=== PATIENT | female | born 1985 | race Caucasian/White ===

== ENCOUNTER 2018-03-15 09:53 | Inpatient (IN) | payer MEDICAID, OTHER ==
[2018-03-15] MEDS ORDERED: Sodium Chloride 0.9% 1,000 ML IV ONE (10:00)
[2018-03-15] MEDS ORDERED: Sodium Chloride 0.9% 2.5 ML Syringe FLUSH PRN (10:00)
[2018-03-15] MEDS ORDERED: Sodium Chloride 0.9% 10 ML Syringe FLUSH PRN (10:00)
[2018-03-15] MEDS ORDERED: Ondansetron 4 MG/2 ML SDV IVPUSH ONE (10:00)
[2018-03-15] MEDS ORDERED: Morphine 2 MG/ML Syringe IVPUSH ONE (10:00)
[2018-03-15] MEDS ORDERED: HYDROmorphone 1 MG/ML Syringe IVPUSH ONE ×4 (10:44→13:40)
[2018-03-15] MEDS ORDERED: HYDROmorphone 1 MG/ML Syringe IM ONE (10:46)
[2018-03-15 11:01] LABS: CHLORIDE,CL 102 mmol/L (98-107); SODIUM,NA 138 mmol/L (136-145)
--- NOTE | 2018-03-15 11:37 | EDM.PDOC ---
ED HPI GENERAL MEDICAL PROBLEM - General Chief Complaint: Abdominal Pain Stated Complaint: ABDOMINAL PAIN Time Seen by Provider: 03/15/18 09:54 Source of Information: Reports: Patient History Limitations: Reports: No Limitations - History of Present Illness INITIAL COMMENTS - FREE TEXT/NARRATIVE: History of present illness: []Patient started having right lower quadrant abdominal pain yesterday that has progressively worsened throughout the night. She has been having fevers and vomiting and states her pain is severe and worse with movement. She has no blood in her urine or pain with urination, gel discharge or diarrhea. Review of systems: As per history of present illness and below otherwise all systems reviewed and negative. Past medical history: As per history of present illness and as reviewed below otherwise noncontributory. Surgical history: As per history of present illness and as reviewed below otherwise noncontributory. Social history: No reported history of drug or alcohol abuse. Family history: As per history of present illness and as reviewed below otherwise noncontributory. Physical exam: General: Well developed, well nourished in moderate painful distress HEENT: Atraumatic, normocephalic, pupils reactive, negative for conjunctival pallor or scleral icterus, mucous membranes moist, throat clear, neck supple, nontender, trachea midline. Lungs: Clear to auscultation, breath sounds equal bilaterally, chest nontender. Heart: S1S2, regular, negative for clicks, rubs, or JVD. Abdomen: Absent bowel sounds, Rigid, nondistended, tender throughout with rebound guarding. Negative for masses or hepatosplenomegaly. Negative for costovertebral tenderness. Pelvis: Stable nontender. Genitourinary: Deferred. Rectal: Deferred. Extremities: Atraumatic, negative for cords or calf pain. Neurovascular unremarkable. Neuro: Awake, alert, oriented. Cranial nerves II through XII unremarkable. Cerebellum unremarkable. Motor and sensory unremarkable throughout. Exam nonfocal. Skin:warm and dry Diagnostics: CBC elevated white count 17,000 with a shift, chemistry, UA, negative , CT abdomen pelvis shows acute appendicitis with microperforation Therapeutics: IV fluids, Dilaudid and Zofran for pain, Zosyn given ED Course: Unremarkable Impression: Acute appendicitis with microperforation Prescriptions: None Plan: Dr. Burton consultation will be coming in for appendectomy Definitive disposition and diagnosis as appropriate pending reevaluation and review of above. 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 ED EXAM, GI/ABD - Physical Exam Exam: See Below (See history of present illness) Course - Vital Signs Last Recorded V/S: Last Vital Signs Temp 96.7 F 03/15/18 09:56 Pulse 109 H 03/15/18 09:56 Resp 20 03/15/18 09:56 BP 115/65 03/15/18 09:56 Pulse Ox 98 03/15/18 09:56 - Orders/Labs/Meds Orders: Active Orders 24 hr Category Date Time Status NPO [Nothing Per Oral Diet] [DIET] Diet 03/15/18 Lunch Active Abdomen Pelvis w Cont [CT] Stat Exams 03/15/18 10:44 Taken UA W/MICROSCOPIC [URIN] Stat Lab 03/15/18 10:00 Ordered Lactated Ringers [Ringers, Lactated] 1,000 ml Med 03/15/18 12:17 Active IV .BOLUS Piperacillin/Tazobactam [Piperacil-Tazobact] 3.375 gm Med 03/15/18 12:16 Active Sodium Chloride 0.9% [Normal Saline] 50 ml IV ONETIME Sodium Chloride 0.9% [Saline Flush] Med 03/15/18 10:00 Active 10 ml FLUSH ASDIRECTED PRN Sodium Chloride 0.9% [Saline Flush] Med 03/15/18 10:00 Active 2.5 ml FLUSH ASDIRECTED PRN Saline Lock Insert [OM.PC] Stat Oth 03/15/18 09:59 Ordered Medication Orders Piperacillin Sod/Tazobactam (Sod 3.375 gm/ Sodium Chloride) 50 mls @ 100 mls/ hr IV ONETIME ONE Stop: 03/15/18 12:45 Lactated Ringer's (Ringers, Lactated) 1,000 mls @ 999 mls/hr IV .BOLUS ONE Stop: 03/15/18 13:17 Sodium Chloride (Saline Flush) 10 ml FLUSH ASDIRECTED PRN PRN Reason: Keep Vein Open Sodium Chloride (Saline Flush) 2.5 ml FLUSH ASDIRECTED PRN PRN Reason: Keep Vein Open Labs: Laboratory Tests 03/15/18 03/15/18 03/15/18 Range/Units 10:05 10:05 10:05 WBC 17.11 H (4.0-11.0) K/uL RBC 4.95 (4.30-5.90) M/uL Hgb 14.5 (12.0-16.0) g/dL Hct 42.0 (36.0-46.0) % MCV 84.8 (80.0-98.0) fL MCH 29.3 (27.0-32.0) pg MCHC 34.5 (31.0-37.0) g/dL RDW Std Deviation 38.9 (28.0-62.0) fl RDW Coeff of Severo 13 (11.0-15.0) % Plt Count 207 (150-400) K/uL MPV 11.20 (7.40-12.00) fL Neut % (Auto) 87.1 H (48.0-80.0) % Lymph % (Auto) 4.4 L (16.0-40.0) % [place] % (Auto) 8.4 (0.0-15.0) % Eos % (Auto) 0.0 (0.0-7.0) % Baso % (Auto) 0.1 (0.0-1.5) % Neut # (Auto) 14.9 H (1.4-5.7) K/uL Lymph # (Auto) 0.8 (0.6-2.4) K/uL [place] # (Auto) 1.4 H (0.0-0.8) K/uL Eos # (Auto) 0.0 (0.0-0.7) K/uL Baso # (Auto) 0.0 (0.0-0.1) K/uL Nucleated RBC % 0.0 /100WBC Nucleated RBCs # 0 K/uL Sodium 138 (136-145) mmol/L Potassium 3.8 (3.5-5.1) mmol/L Chloride 102 (98-107) mmol/L Carbon Dioxide 23.6 (21.0-32.0) mmol/L BUN 17 (7.0-18.0) mg/dL Creatinine 0.9 (0.6-1.0) mg/dL Est Cr Clr Drug Dosing 81.50 mL/min Estimated GFR (MDRD) > 60.0 ml/min Glucose 134 H (74-106) mg/dL Calcium 9.0 (8.5-10.1) mg/dL Total Bilirubin 1.1 H (0.2-1.0) mg/dL AST 14 L (15-37) IU/L ALT 17 (14-63) IU/L Alkaline Phosphatase 51 (46-116) U/L Total Protein 8.3 H (6.4-8.2) g/dL Albumin 4.5 (3.4-5.0) g/dL Globulin 3.8 H (2.0-3.5) g/dL Albumin/Globulin Ratio 1.2 L (1.3-2.8) Lipase 86 (73-393) U/L HCG, Quant < 1.0 mIU/mL Meds: Medications Generic Name Dose Route Start Last Admin Trade Name Freq PRN Reason Stop Dose Admin Piperacillin Sod/Tazobactam 50 mls @ 100 mls/hr 03/15/18 12:16 Sod 3.375 gm/ Sodium Chloride IV 03/15/18 12:45 ONETIME ONE Lactated Ringer's 1,000 mls @ 999 mls/hr 03/15/18 12:17 Ringers, Lactated IV 03/15/18 13:17 .BOLUS ONE Sodium Chloride 10 ml 03/15/18 10:00 Saline Flush FLUSH ASDIRECTED PRN Keep Vein Open Sodium Chloride 2.5 ml 03/15/18 10:00 Saline Flush FLUSH ASDIRECTED PRN Keep Vein Open Discontinued Medications Generic Name Dose Route Start Last Admin Trade Name Freq PRN Reason Stop Dose Admin Hydromorphone HCl 0.5 mg 03/15/18 10:44 03/15/18 10:56 Dilaudid IVPUSH 03/15/18 10:45 Not Given ONETIME ONE Hydromorphone HCl 1 mg 03/15/18 10:46 03/15/18 10:56 Dilaudid IM 03/15/18 10:47 Not Given ONETIME ONE Hydromorphone HCl 1 mg 03/15/18 10:54 03/15/18 10:55 Dilaudid IVPUSH 03/15/18 10:55 1 mg ONETIME ONE Administration Hydromorphone HCl 1 mg 03/15/18 11:27 03/15/18 11:34 Dilaudid IVPUSH 03/15/18 11:28 1 mg ONETIME ONE Administration Sodium Chloride 1,000 mls @ 999 mls/hr 03/15/18 10:00 03/15/18 10:17 Normal Saline IV 03/15/18 11:00 999 mls/hr .Bolus ONE Administration Morphine Sulfate 4 mg 03/15/18 10:00 03/15/18 10:17 Morphine IVPUSH 03/15/18 10:01 4 mg ONETIME ONE Administration Ondansetron HCl 4 mg 03/15/18 10:00 03/15/18 10:17 Zofran IVPUSH 03/15/18 10:01 4 mg ONETIME ONE Administration Departure - Departure Time of Disposition: 12:24 Disposition: Admitted As Inpatient 68 Condition: Good Clinical Impression: Acute appendicitis with rupture - Discharge Information *PRESCRIPTION DRUG MONITORING PROGRAM REVIEWED*: No *COPY OF PRESCRIPTION DRUG MONITORING REPORT IN PATIENT MODE: No Referrals: PCP,Unknown [Primary Care Provider] - Forms: ED Department Discharge - My Orders Last 24 Hours: My Active Orders 03/15/18 09:59 Saline Lock Insert [OM.PC] Stat 03/15/18 10:00 UA W/MICROSCOPIC [URIN] Stat Sodium Chloride 0.9% [Saline Flush] 10 ml FLUSH ASDIRECTED PRN Sodium Chloride 0.9% [Saline Flush] 2.5 ml FLUSH ASDIRECTED PRN 03/15/18 10:44 Abdomen Pelvis w Cont [CT] Stat 03/15/18 12:16 Piperacillin/Tazobactam [Piperacil-Tazobact] 3.375 gm Sodium Chloride 0.9% [ Normal Saline] 50 ml IV ONETIME 03/15/18 12:17 Lactated Ringers [Ringers, Lactated] 1,000 ml IV .BOLUS 03/15/18 Lunch NPO [Nothing Per Oral Diet] [DIET] - Assessment/Plan Last 24 Hours: My Active Orders 03/15/18 09:59 Saline Lock Insert [OM.PC] Stat 03/15/18 10:00 UA W/MICROSCOPIC [URIN] Stat Sodium Chloride 0.9% [Saline Flush] 10 ml FLUSH ASDIRECTED PRN Sodium Chloride 0.9% [Saline Flush] 2.5 ml FLUSH ASDIRECTED PRN 03/15/18 10:44 Abdomen Pelvis w Cont [CT] Stat 03/15/18 12:16 Piperacillin/Tazobactam [Piperacil-Tazobact] 3.375 gm Sodium Chloride 0.9% [ Normal Saline] 50 ml IV ONETIME 03/15/18 12:17 Lactated Ringers [Ringers, Lactated] 1,000 ml IV .BOLUS 03/15/18 Lunch NPO [Nothing Per Oral Diet] [DIET]
[2018-03-15] MEDS ORDERED: Piperacillin/Tazobactam 3.375 GM in Sodium Chloride 0.9% 50 ML IV ONE (12:16)
[2018-03-15] MEDS ORDERED: Lactated Ringers 1,000 ML IV ONE (12:17)
--- NOTE | 2018-03-15 13:07 | PCM.HP ---
H&P History of Present Illness - General Date of Service: 03/15/18 Source of Information: Patient History Limitations: Reports: No Limitations - History of Present Illness Initial Comments - Free Text/Narative: Patient is a 33 year old female who presents with 24 hours of abdominal pain. She has never had pain like this before. It was located in the RLQ. This progressively got worse with time. This morning she is unable to bend down or take a deep breath. She c/o fever chills nausea and vomiting. She was tachycardic on arrival. She had a WBC of 17K. CT scan of the abdomen pelvis showed an inflamed retrocecal appendix that appeared to be perforated. 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 Exam - Exam Exam: See Below - Vital Signs Vital Signs: Last Vital Signs Temp 35.9 C 03/15/18 09:56 Pulse 109 H 03/15/18 09:56 Resp 20 03/15/18 09:56 BP 115/65 03/15/18 09:56 Pulse Ox 98 03/15/18 09:56 Weight: 60.781 kg - Exam General: Alert, Oriented, Moderate Distress HEENT: Conjunctiva Clear, Mucosa Moist & [place], Posterior Pharynx Clear Lungs: Clear to Auscultation, Normal Respiratory Effort Cardiovascular: Regular Rhythm, Tachycardia GI/Abdominal Exam: Soft, No Distention, No Mass, Rigid (RLQ), Rebound (RLQ), Tender (RLQ) Back Exam: Normal Inspection Extremities: Normal Inspection Skin: Warm, Dry, Intact Psychiatric: Alert, Normal Affect, Normal Mood - Patient Data Lab Results Last 24 hrs: Laboratory Results - last 24 hr 03/15/18 03/15/18 03/15/18 Range/Units 10:05 10:05 10:05 WBC 17.11 H (4.0-11.0) K/uL RBC 4.95 (4.30-5.90) M/uL Hgb 14.5 (12.0-16.0) g/dL Hct 42.0 (36.0-46.0) % MCV 84.8 (80.0-98.0) fL MCH 29.3 (27.0-32.0) pg MCHC 34.5 (31.0-37.0) g/dL RDW Std Deviation 38.9 (28.0-62.0) fl RDW Coeff of Severo 13 (11.0-15.0) % Plt Count 207 (150-400) K/uL MPV 11.20 (7.40-12.00) fL Neut % (Auto) 87.1 H (48.0-80.0) % Lymph % (Auto) 4.4 L (16.0-40.0) % [place] % (Auto) 8.4 (0.0-15.0) % Eos % (Auto) 0.0 (0.0-7.0) % Baso % (Auto) 0.1 (0.0-1.5) % Neut # (Auto) 14.9 H (1.4-5.7) K/uL Lymph # (Auto) 0.8 (0.6-2.4) K/uL [place] # (Auto) 1.4 H (0.0-0.8) K/uL Eos # (Auto) 0.0 (0.0-0.7) K/uL Baso # (Auto) 0.0 (0.0-0.1) K/uL Nucleated RBC % 0.0 /100WBC Nucleated RBCs # 0 K/uL Lactate (0.20-2.00) mmol/L Sodium 138 (136-145) mmol/L Potassium 3.8 (3.5-5.1) mmol/L Chloride 102 (98-107) mmol/L Carbon Dioxide 23.6 (21.0-32.0) mmol/L BUN 17 (7.0-18.0) mg/dL Creatinine 0.9 (0.6-1.0) mg/dL Est Cr Clr Drug Dosing 81.50 mL/min Estimated GFR (MDRD) > 60.0 ml/min Glucose 134 H (74-106) mg/dL Calcium 9.0 (8.5-10.1) mg/dL Total Bilirubin 1.1 H (0.2-1.0) mg/dL AST 14 L (15-37) IU/L ALT 17 (14-63) IU/L Alkaline Phosphatase 51 (46-116) U/L Total Protein 8.3 H (6.4-8.2) g/dL Albumin 4.5 (3.4-5.0) g/dL Globulin 3.8 H (2.0-3.5) g/dL Albumin/Globulin Ratio 1.2 L (1.3-2.8) Lipase 86 (73-393) U/L HCG, Quant < 1.0 mIU/mL 03/15/18 Range/Units 10:05 WBC (4.0-11.0) K/uL RBC (4.30-5.90) M/uL Hgb (12.0-16.0) g/dL Hct (36.0-46.0) % MCV (80.0-98.0) fL MCH (27.0-32.0) pg MCHC (31.0-37.0) g/dL RDW Std Deviation (28.0-62.0) fl RDW Coeff of Severo (11.0-15.0) % Plt Count (150-400) K/uL MPV (7.40-12.00) fL Neut % (Auto) (48.0-80.0) % Lymph % (Auto) (16.0-40.0) % [place] % (Auto) (0.0-15.0) % Eos % (Auto) (0.0-7.0) % Baso % (Auto) (0.0-1.5) % Neut # (Auto) (1.4-5.7) K/uL Lymph # (Auto) (0.6-2.4) K/uL [place] # (Auto) (0.0-0.8) K/uL Eos # (Auto) (0.0-0.7) K/uL Baso # (Auto) (0.0-0.1) K/uL Nucleated RBC % /100WBC Nucleated RBCs # K/uL Lactate 1.5 (0.20-2.00) mmol/L Sodium (136-145) mmol/L Potassium (3.5-5.1) mmol/L Chloride (98-107) mmol/L Carbon Dioxide (21.0-32.0) mmol/L BUN (7.0-18.0) mg/dL Creatinine (0.6-1.0) mg/dL Est Cr Clr Drug Dosing mL/min Estimated GFR (MDRD) ml/min Glucose (74-106) mg/dL Calcium (8.5-10.1) mg/dL Total Bilirubin (0.2-1.0) mg/dL AST (15-37) IU/L ALT (14-63) IU/L Alkaline Phosphatase (46-116) U/L Total Protein (6.4-8.2) g/dL Albumin (3.4-5.0) g/dL Globulin (2.0-3.5) g/dL Albumin/Globulin Ratio (1.3-2.8) Lipase (73-393) U/L HCG, Quant mIU/mL Result Diagrams: 03/15/18 10:05 03/15/18 10:05 - Problem List (1) Acute appendicitis with rupture SNOMED Code(s): 91375090, 61223236 ICD Code: K35.2 - ACUTE APPENDICITIS WITH GENERALIZED PERITONITIS Status: Acute Current Visit: Yes Problem List Initiated/Reviewed/Updated: Yes Orders Last 24hrs: Active Orders 24 hr Category Date Time Status NPO [Nothing Per Oral Diet] [DIET] Diet 03/15/18 Lunch Active Abdomen Pelvis w Cont [CT] Stat Exams 03/15/18 10:44 Taken UA W/MICROSCOPIC [URIN] Stat Lab 03/15/18 10:00 Ordered Lactated Ringers [Ringers, Lactated] 1,000 ml Med 03/15/18 12:17 Active IV .BOLUS Sodium Chloride 0.9% [Saline Flush] Med 03/15/18 10:00 Active 10 ml FLUSH ASDIRECTED PRN Sodium Chloride 0.9% [Saline Flush] Med 03/15/18 10:00 Active 2.5 ml FLUSH ASDIRECTED PRN Saline Lock Insert [OM.PC] Stat Oth 03/15/18 09:59 Ordered Medication Orders Lactated Ringer's (Ringers, Lactated) 1,000 mls @ 999 mls/hr IV .BOLUS ONE Stop: 03/15/18 13:17 Last Admin: 03/15/18 12:39 Dose: 999 mls/hr Sodium Chloride (Saline Flush) 10 ml FLUSH ASDIRECTED PRN PRN Reason: Keep Vein Open Sodium Chloride (Saline Flush) 2.5 ml FLUSH ASDIRECTED PRN PRN Reason: Keep Vein Open Assessment/Plan Comment:: Patient has acute appendicitis. I explained the pathophysiology of appendicitis to the patient. The treatment for this is removal of the appendix. We discussed the laparoscopic and open approaches. Should I be unable to perform it safely I will convert to open. We discussed the expected perioperative course for perforated vs non-perforated appendicitis. We discussed the risks including bleeding, infection or damage to surrounding structures. She verbalized understanding and wishes to proceed. She has been given 1 L of fluids and zosyn. Will keep npo and take to the OR.
[2018-03-15] MEDS ORDERED: Bupivacaine 0.5% 30 ML SDV ONE (13:20)
[2018-03-15] MEDS ORDERED: fentaNYL 250 MCG/5 ML SDV ONE (13:47)
[2018-03-15] MEDS ORDERED: Propofol 200 MG/20 ML SDV ONE (13:47)
[2018-03-15] MEDS ORDERED: Midazolam 1 MG/ML 2 ML SDV ONE (13:47)
[2018-03-15] MEDS ORDERED: Sugammadex Sodium 200 MG/2 ML VIAL ONE (13:53)
[2018-03-15] MEDS ORDERED: Succinylcholine 200 MG/10 ML MDV ONE (13:56)
[2018-03-15] MEDS ORDERED: Rocuronium 10 MG/ML 10 ML Syringe ONE (13:56)
[2018-03-15] MEDS ORDERED: Ondansetron 4 MG/2 ML SDV ONE (13:56)
[2018-03-15] MEDS ORDERED: Ketorolac 30 MG/ML SDV ONE (13:56)
[2018-03-15] MEDS ORDERED: Glycopyrrolate 0.2 MG/ML SDV ONE (13:56)
[2018-03-15] MEDS ORDERED: Lidocaine 2% 5 ML SDV ONE (13:56)
[2018-03-15] MEDS ORDERED: fentaNYL 100 MCG/2 ML SDV IVPUSH PRN (13:59)
--- NOTE | 2018-03-15 13:59 | PCM.PREANE ---
Preanesthetic Assessment - Anesthesia/Transfusion/Family Hx Family History of Anesthesia Reaction: No - Review of Systems General: No Symptoms Pulmonary: No Symptoms Cardiovascular: No Symptoms Gastrointestinal: No Symptoms Neurological: No Symptoms - Physical Assessment NPO Status Date: 03/15/18 NPO Status Time: 00:01 O2 Sat by Pulse Oximetry: 98 Respiratory Rate: 20 Vital Signs: Last Vital Signs Temp 35.9 C 03/15/18 09:56 Pulse 109 H 03/15/18 09:56 Resp 20 03/15/18 09:56 BP 115/65 03/15/18 09:56 Pulse Ox 98 03/15/18 09:56 Height: 1.65 m Weight: 60.781 kg ASA Class: 1E Mental Status: Alert & Oriented x3 Dentition: Reports: Normal Dentition ROM/Head Extension: Full - Lab Values: Laboratory Last Values WBC 17.11 K/uL (4.0-11.0) H 03/15/18 10:05 RBC 4.95 M/uL (4.30-5.90) 03/15/18 10:05 Hgb 14.5 g/dL (12.0-16.0) 03/15/18 10:05 Hct 42.0 % (36.0-46.0) 03/15/18 10:05 MCV 84.8 fL (80.0-98.0) 03/15/18 10:05 MCH 29.3 pg (27.0-32.0) 03/15/18 10:05 MCHC 34.5 g/dL (31.0-37.0) 03/15/18 10:05 RDW Std Deviation 38.9 fl (28.0-62.0) 03/15/18 10:05 RDW Coeff of Severo 13 % (11.0-15.0) 03/15/18 10:05 Plt Count 207 K/uL (150-400) 03/15/18 10:05 MPV 11.20 fL (7.40-12.00) 03/15/18 10:05 Neut % (Auto) 87.1 % (48.0-80.0) H 03/15/18 10:05 Lymph % (Auto) 4.4 % (16.0-40.0) L 03/15/18 10:05 [place] % (Auto) 8.4 % (0.0-15.0) 03/15/18 10:05 Eos % (Auto) 0.0 % (0.0-7.0) 03/15/18 10:05 Baso % (Auto) 0.1 % (0.0-1.5) 03/15/18 10:05 Neut # (Auto) 14.9 K/uL (1.4-5.7) H 03/15/18 10:05 Lymph # (Auto) 0.8 K/uL (0.6-2.4) 03/15/18 10:05 [place] # (Auto) 1.4 K/uL (0.0-0.8) H 03/15/18 10:05 Eos # (Auto) 0.0 K/uL (0.0-0.7) 03/15/18 10:05 Baso # (Auto) 0.0 K/uL (0.0-0.1) 03/15/18 10:05 Nucleated RBC % 0.0 /100WBC 03/15/18 10:05 Nucleated RBCs # 0 K/uL 03/15/18 10:05 Lactate 1.5 mmol/L (0.20-2.00) 03/15/18 10:05 Sodium 138 mmol/L (136-145) 03/15/18 10:05 Potassium 3.8 mmol/L (3.5-5.1) 03/15/18 10:05 Chloride 102 mmol/L (98-107) 03/15/18 10:05 Carbon Dioxide 23.6 mmol/L (21.0-32.0) 03/15/18 10:05 BUN 17 mg/dL (7.0-18.0) 03/15/18 10:05 Creatinine 0.9 mg/dL (0.6-1.0) 03/15/18 10:05 Est Cr Clr Drug Dosing 81.50 mL/min 03/15/18 10:05 Estimated GFR (MDRD) > 60.0 ml/min 03/15/18 10:05 Glucose 134 mg/dL (74-106) H 03/15/18 10:05 Calcium 9.0 mg/dL (8.5-10.1) 03/15/18 10:05 Total Bilirubin 1.1 mg/dL (0.2-1.0) H 03/15/18 10:05 AST 14 IU/L (15-37) L 03/15/18 10:05 ALT 17 IU/L (14-63) 03/15/18 10:05 Alkaline Phosphatase 51 U/L (46-116) 03/15/18 10:05 Total Protein 8.3 g/dL (6.4-8.2) H 03/15/18 10:05 Albumin 4.5 g/dL (3.4-5.0) 03/15/18 10:05 Globulin 3.8 g/dL (2.0-3.5) H 03/15/18 10:05 Albumin/Globulin Ratio 1.2 (1.3-2.8) L 03/15/18 10:05 Lipase 86 U/L (73-393) 03/15/18 10:05 HCG, Quant < 1.0 mIU/mL 03/15/18 10:05 - Allergies Allergies/Adverse Reactions: Allergies Allergy/AdvReac Type Severity Reaction Status Date / Time No Known Allergies Allergy Verified 03/15/18 10:04 - Acknowledgements Anesthesia Type Planned: General Anesthesia Pt an Appropriate Candidate for the Planned Anesthesia: Yes Alternatives and Risks of Anesthesia Discussed w Pt/Guardian: Yes Pt/Guardian Understands and Agrees with Anesthesia Plan: Yes PreAnesthesia Questionnaire - Past Health History Medical/Surgical History: Denies 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: Psychiatric History: Reports: Anxiety, Depression - SUBSTANCE USE Smoking Status *Q: Never Smoker Recreational Drug Use History: Yes Recreational Drug Type: Reports: Marijuana/Hashish - HOME MEDS Home Medications: Home Meds ClonazePAM [KlonoPIN] 0.5 mg PO PRN 03/15/18 [History] - CURRENT (IN HOUSE) MEDS Current Meds: Current Medications Hydromorphone HCl (Dilaudid) 0.5 mg IVPUSH Q1H PRN PRN Reason: Abdominal Pain Sodium Chloride (Saline Flush) 10 ml FLUSH ASDIRECTED PRN PRN Reason: Keep Vein Open Sodium Chloride (Saline Flush) 2.5 ml FLUSH ASDIRECTED PRN PRN Reason: Keep Vein Open Discontinued Medications Bupivacaine HCl (Marcaine 0.5%) Confirm Administered Dose 30 ml .ROUTE .STK-MED ONE Stop: 03/15/18 13:21 Fentanyl (Sublimaze) Confirm Administered Dose 250 mcg .ROUTE .STK-MED ONE Stop: 03/15/18 13:48 Hydromorphone HCl (Dilaudid) 0.5 mg IVPUSH ONETIME ONE Stop: 03/15/18 10:45 Last Admin: 03/15/18 10:56 Dose: Not Given Hydromorphone HCl (Dilaudid) 1 mg IM ONETIME ONE Stop: 03/15/18 10:47 Last Admin: 03/15/18 10:56 Dose: Not Given Hydromorphone HCl (Dilaudid) 1 mg IVPUSH ONETIME ONE Stop: 03/15/18 10:55 Last Admin: 03/15/18 10:55 Dose: 1 mg Hydromorphone HCl (Dilaudid) 1 mg IVPUSH ONETIME ONE Stop: 03/15/18 11:28 Last Admin: 03/15/18 11:34 Dose: 1 mg Hydromorphone HCl (Dilaudid) 1 mg IVPUSH ONETIME ONE Stop: 03/15/18 13:41 Last Admin: 03/15/18 13:44 Dose: 1 mg Sodium Chloride (Normal Saline) 1,000 mls @ 999 mls/hr IV .Bolus ONE Stop: 03/15/18 11:00 Last Admin: 03/15/18 10:17 Dose: 999 mls/hr Piperacillin Sod/Tazobactam (Sod 3.375 gm/ Sodium Chloride) 50 mls @ 100 mls/ hr IV ONETIME ONE Stop: 03/15/18 12:45 Last Admin: 03/15/18 12:40 Dose: 100 mls/hr Lactated Ringer's (Ringers, Lactated) 1,000 mls @ 999 mls/hr IV .BOLUS ONE Stop: 03/15/18 13:17 Last Admin: 03/15/18 12:39 Dose: 999 mls/hr Midazolam HCl (Versed 1 Mg/Ml) Confirm Administered Dose 2 mg .ROUTE .STK-MED ONE Stop: 03/15/18 13:48 Morphine Sulfate (Morphine) 4 mg IVPUSH ONETIME ONE Stop: 03/15/18 10:01 Last Admin: 03/15/18 10:17 Dose: 4 mg Ondansetron HCl (Zofran) 4 mg IVPUSH ONETIME ONE Stop: 03/15/18 10:01 Last Admin: 03/15/18 10:17 Dose: 4 mg Propofol (Diprivan 20 Ml) Confirm Administered Dose 200 mg .ROUTE .STK-MED ONE Stop: 03/15/18 13:48 Sugammadex Sodium ([place]) Confirm Administered Dose 200 mg .ROUTE .STK-MED ONE Stop: 03/15/18 13:54
[2018-03-15] MEDS ORDERED: Phenylephrine/Normal Saline 100 MCG/ML 10 ML Syringe ONE (14:22)
--- NOTE | 2018-03-15 15:29 | PCM.OPNOTE ---
- General Post-Op/Procedure Note Date of Surgery/Procedure: 03/15/18 Operative Procedure(s): Laparoscopic appendectomy Findings: Perforated and necrotic appendix with purulent peritonitis Pre Op Diagnosis: Acute appendicitis Post-Op Diagnosis: Acute appendicitis Anesthesia Technique: General ET Tube Primary Surgeon: Pilar Kumar Fluid Replacement, Intraop: 800 Output, Urine Amount: 250 EBL in mLs: 10 Complications: None Condition: Good
[2018-03-15] MEDS ORDERED: Meperidine PF 25 MG/ML Syringe IVPUSH ONE (15:52)
[2018-03-15] MEDS ORDERED: Iopamidol 755 MG/ML 200 ML Multipack Bottle IVPUSH STA (15:59)
--- NOTE | 2018-03-15 16:01 | PCM.POSTAN ---
POST ANESTHESIA ASSESSMENT - MENTAL STATUS Mental Status: Alert - RESPIRATORY Respiratory Status: Respiratory Rate WNL - CARDIOVASCULAR CV Status: Pulse Rate WNL - GASTROINTESTINAL GI Status: No Symptoms - POST OP HYDRATION Hydration Status: Adequate & Stable
--- NOTE | 2018-03-15 16:20 | PCM48HPAN ---
Post Anesthesia Note - EVALUATION WITHIN 48HRS OF ANESTHETIC Vital Signs in Normal Range: Yes Patient Participated in Evaluation: Yes Respiratory Function Stable: Yes Airway Patent: Yes Cardiovascular Function Stable: Yes Hydration Status Stable: Yes Pain Control Satisfactory: Yes Nausea and Vomiting Control Satisfactory: Yes Mental Status Recovered: Yes Resp Rate: 11
[2018-03-15] MEDS: Lactated Ringers 1,000 ML IV SCH ×2 (16:35→23:33)
--- NOTE | 2018-03-15 16:37 | OR ---
SURGEON: PEDRO OWEN MD DATE OF PROCEDURE: 03/15/2018 PREOPERATIVE DIAGNOSIS: Appendicitis. POSTOPERATIVE DIAGNOSIS: Acute appendicitis, perforated. PROCEDURE PERFORMED: Laparoscopic appendectomy. MANAGER OF BUSINESS OPERATIONS: Dr. Sai Tellez. ANESTHESIA: General endotracheal anesthesia. FLUIDS: 800 mL of crystalloid. URINE OUTPUT: 250 mL. ESTIMATED BLOOD LOSS: 10 mL. FINDINGS: Perforated necrotic appendicitis with purulent peritonitis. COMPLICATIONS: None. INDICATIONS: The patient is a 33-year-old female, who presents with 24 hours of abdominal pain. CBC showed a leukocytosis of 17,[address] abdomen and pelvis showed a retrocecal perforated appendix. The patient and I discussed the need for an appendectomy. I explained both the laparoscopic and open approaches. Should I be unable to perform it safely laparoscopically, I will convert to open. I explained the procedure, expected perioperative course, and risks including bleeding, infection, or damage to surrounding structures. The patient verbalized understanding and wishes to proceed. PROCEDURE IN DETAIL: The patient was brought to the operating room and placed on the OR table in supine position. A time-out was completed verifying the patient's name, age, date of , allergies, and procedure to be performed. General endotracheal anesthesia was induced. The left arm was tucked to the patient's side and a Sibley catheter was placed. The abdomen was prepped and draped in usual standard fashion. I anesthetized an area 2 fingerbreadths below the left subcostal margin in the midclavicular line with 0.5% Marcaine plain. An 11 blade was used to make a 1 cm incision in this area. A 5 mm optical trocar was used to gain entry into the abdomen in the left upper quadrant. All layers of the abdominal wall were visualized upon entry. The abdomen was insufflated. I inspected the area underneath my initial trocar placement. No damage to surrounding structures was noted. A 5 mm trocar was placed under direct visualization just left and lateral to the umbilicus. I then placed a 12 mm port under direct visualization in the left lower quadrant. The patient was placed into Trendelenburg position and airplaned slightly to the left. I turned my attention to the right side of the abdomen. The patient had a large amount of yellowish green fluid in the pelvis along the right pericolic gutter and up above the liver. This was suctioned out. The peritoneum was hyperemic. I identified the ascending colon and followed this down to the cecum. The area behind the cecum was inflamed. The cecum was not well attached to the posterior peritoneum and I was easily able to rotate this medially. I identified a thickened area of tissue consistent with an inflamed and ruptured appendix. I identified the appendiceal base and followed this distally. The appendix itself was necrotic and perforated. I attempted to elevate the distal tip and this tore off the body of the appendix. It was removed from the abdomen and placed in the container. I turned my attention back to the right lower quadrant. The base of the appendix did not seem to be involved. A [place] dissector was used to create a window between the base of the appendix and the appendiceal mesentery. An endoscopic stapling device was used to staple and transect across the base of the appendix using a 45 mm blue load. Using a Harmonic, I then took down the appendiceal mesentery as close to the body of the appendix as I could. I went in a proximal to distal fashion. Great care was taken to ensure that I was achieving hemostasis and avoiding involvement of other structures, given the amount of inflammation. Once the appendix was completely freed from the appendiceal mesentery, it was placed in an EndoCatch bag and removed through the 12 mm port site. It was placed with the other piece of the appendix and sent to pathology, labeled as appendix. I placed a 12 mm port back into the abdomen, and inspected my operative field. It appeared to be hemostatic and the staple line appeared to be intact. I then copiously irrigated the abdomen with 2.5 L of normal saline until it ran clear. The 12 mm port site was closed with a Leonard-Era device and an 0 Vicryl suture. The 5 mm trocars were removed under direct visualization and the abdomen allowed to desufflate. Given the contaminated nature of the case, the skin was then closed with laila. Sterile dressings were applied. The patient was transferred to the PACU in stable condition. LIVIER MOSQUEDA /[id number]
[2018-03-15] MEDS: Ondansetron 4 MG/2 ML SDV IVPUSH PRN ×2 (16:57→23:33)
[2018-03-15] MEDS: Promethazine 25 MG/ML SDV IM PRN (19:06)
[2018-03-15] MEDS: HYDROmorphone 2 MG/ML SDV IVPUSH PRN ×2 (19:07→23:25)
[2018-03-15] MEDS: Piperacillin/Tazobactam 3.375 GM in Sodium Chloride 0.9% 50 ML IV SCH (19:54)
[2018-03-16] MEDS: Piperacillin/Tazobactam 3.375 GM in Sodium Chloride 0.9% 50 ML IV SCH ×4 (01:45→20:03)
[2018-03-16] MEDS: HYDROmorphone 2 MG/ML SDV IVPUSH PRN ×2 (04:12→07:55)
[2018-03-16 06:27] LABS: CHLORIDE,CL 105 mmol/L (98-107); SODIUM,NA 136 mmol/L (136-145)
[2018-03-16] MEDS: Lactated Ringers 1,000 ML IV SCH ×2 (06:54→14:15)
[2018-03-16] MEDS: Ondansetron 4 MG/2 ML SDV IVPUSH PRN (07:55)
[2018-03-16] MEDS ORDERED: HYDROmorphone 1 MG/ML Syringe IVPUSH PRN (08:30)
--- NOTE | 2018-03-16 10:01 | PCM.SURGPN ---
- General Info Date of Service: 03/16/18 Date of Surgery/Procedure: 03/15/18 POD#: 1 Functional Status: Reports: Pain Controlled, Other (Having some on and off nausea. This is well controlled with zofran. Abdominal pain is improved but still sore in RLQ. Pain controlled on po meds. Heart rate improved. No acute events overnight. ) - Review of Systems General: Reports: No Symptoms Pulmonary: Reports: No Symptoms Cardiovascular: Reports: No Symptoms Gastrointestinal: Reports: Abdominal Pain Musculoskeletal: Reports: No Symptoms Skin: Reports: No Symptoms - Patient Data Vitals - Most Recent: Last Vital Signs Temp 36.8 C 03/16/18 08:00 Pulse 136 H 03/15/18 16:13 Resp 12 03/16/18 08:00 BP 87/57 L 03/16/18 08:00 Pulse Ox 100 03/16/18 08:00 Weight - Most Recent: 62.5 kg I&O - Last 24 Hours: Intake & Output 03/15/18 03/16/18 03/16/18 22:59 06:59 14:59 Intake Total 1900 2148 320 Output Total 250 300 Balance 1650 1848 320 Lab Results Last 24 Hrs: Laboratory Results - last 24 hr 03/15/18 03/15/18 03/15/18 Range/Units 10:05 10:05 10:05 WBC 17.11 H (4.0-11.0) K/uL RBC 4.95 (4.30-5.90) M/uL Hgb 14.5 (12.0-16.0) g/dL Hct 42.0 (36.0-46.0) % MCV 84.8 (80.0-98.0) fL MCH 29.3 (27.0-32.0) pg MCHC 34.5 (31.0-37.0) g/dL RDW Std Deviation 38.9 (28.0-62.0) fl RDW Coeff of Severo 13 (11.0-15.0) % Plt Count 207 (150-400) K/uL MPV 11.20 (7.40-12.00) fL Neut % (Auto) 87.1 H (48.0-80.0) % Lymph % (Auto) 4.4 L (16.0-40.0) % Toombs % (Auto) 8.4 (0.0-15.0) % Eos % (Auto) 0.0 (0.0-7.0) % Baso % (Auto) 0.1 (0.0-1.5) % Neut # (Auto) 14.9 H (1.4-5.7) K/uL Lymph # (Auto) 0.8 (0.6-2.4) K/uL Toombs # (Auto) 1.4 H (0.0-0.8) K/uL Eos # (Auto) 0.0 (0.0-0.7) K/uL Baso # (Auto) 0.0 (0.0-0.1) K/uL Nucleated RBC % 0.0 /100WBC Nucleated RBCs # 0 K/uL Lactate (0.20-2.00) mmol/L Sodium 138 (136-145) mmol/L Potassium 3.8 (3.5-5.1) mmol/L Chloride 102 (98-107) mmol/L Carbon Dioxide 23.6 (21.0-32.0) mmol/L BUN 17 (7.0-18.0) mg/dL Creatinine 0.9 (0.6-1.0) mg/dL Est Cr Clr Drug Dosing 81.50 mL/min Estimated GFR (MDRD) > 60.0 ml/min Glucose 134 H (74-106) mg/dL Calcium 9.0 (8.5-10.1) mg/dL Total Bilirubin 1.1 H (0.2-1.0) mg/dL AST 14 L (15-37) IU/L ALT 17 (14-63) IU/L Alkaline Phosphatase 51 (46-116) U/L Total Protein 8.3 H (6.4-8.2) g/dL Albumin 4.5 (3.4-5.0) g/dL Globulin 3.8 H (2.0-3.5) g/dL Albumin/Globulin Ratio 1.2 L (1.3-2.8) Lipase 86 (73-393) U/L HCG, Quant < 1.0 mIU/mL 03/15/18 03/16/18 03/16/18 Range/Units 10:05 05:28 05:28 WBC 9.14 (4.0-11.0) K/uL RBC 3.82 L (4.30-5.90) M/uL Hgb 11.0 L (12.0-16.0) g/dL Hct 32.8 L (36.0-46.0) % MCV 85.9 (80.0-98.0) fL MCH 28.8 (27.0-32.0) pg MCHC 33.5 (31.0-37.0) g/dL RDW Std Deviation 41.2 (28.0-62.0) fl RDW Coeff of Severo 13 (11.0-15.0) % Plt Count 140 L (150-400) K/uL MPV 11.20 (7.40-12.00) fL Neut % (Auto) 77.1 (48.0-80.0) % Lymph % (Auto) 13.7 L (16.0-40.0) % Toombs % (Auto) 9.0 (0.0-15.0) % Eos % (Auto) 0.1 (0.0-7.0) % Baso % (Auto) 0.1 (0.0-1.5) % Neut # (Auto) 7.1 H (1.4-5.7) K/uL Lymph # (Auto) 1.3 (0.6-2.4) K/uL Toombs # (Auto) 0.8 (0.0-0.8) K/uL Eos # (Auto) 0.0 (0.0-0.7) K/uL Baso # (Auto) 0.0 (0.0-0.1) K/uL Nucleated RBC % 0.0 /100WBC Nucleated RBCs # 0 K/uL Lactate 1.5 (0.20-2.00) mmol/L Sodium 136 (136-145) mmol/L Potassium 3.7 (3.5-5.1) mmol/L Chloride 105 (98-107) mmol/L Carbon Dioxide 28.2 (21.0-32.0) mmol/L BUN 15 (7.0-18.0) mg/dL Creatinine 0.9 (0.6-1.0) mg/dL Est Cr Clr Drug Dosing 81.50 mL/min Estimated GFR (MDRD) > 60.0 ml/min Glucose 113 H (74-106) mg/dL Calcium 7.8 L (8.5-10.1) mg/dL Total Bilirubin (0.2-1.0) mg/dL AST (15-37) IU/L ALT (14-63) IU/L Alkaline Phosphatase (46-116) U/L Total Protein (6.4-8.2) g/dL Albumin (3.4-5.0) g/dL Globulin (2.0-3.5) g/dL Albumin/Globulin Ratio (1.3-2.8) Lipase (73-393) U/L HCG, Quant mIU/mL Med Orders - Current: Current Medications Acetaminophen (Tylenol) 650 mg PO Q6H PRN PRN Reason: Pain (mild 1-3) Fentanyl (Sublimaze) 50 mcg IVPUSH Q5M PRN PRN Reason: Pain Hydromorphone HCl (Dilaudid) 0.5 mg IVPUSH Q1H PRN PRN Reason: Abdominal Pain Lactated Ringer's (Ringers, Lactated) 1,000 mls @ 150 mls/hr IV ASDIRECTED [facility] Last Admin: 03/16/18 06:54 Dose: 150 mls/hr Piperacillin Sod/Tazobactam (Sod 3.375 gm/ Sodium Chloride) 50 mls @ 100 mls/ hr IV Q6H [facility] Last Admin: 03/16/18 07:58 Dose: 100 mls/hr Ondansetron HCl (Zofran) 4 mg IVPUSH Q6H PRN PRN Reason: Nausea/Vomiting Last Admin: 03/16/18 07:55 Dose: 4 mg Promethazine HCl (Phenergan) 25 mg IM Q6H PRN PRN Reason: Nausea Last Admin: 03/15/18 19:06 Dose: 25 mg Sodium Chloride (Saline Flush) 10 ml FLUSH ASDIRECTED PRN PRN Reason: Keep Vein Open Sodium Chloride (Saline Flush) 2.5 ml FLUSH ASDIRECTED PRN PRN Reason: Keep Vein Open Discontinued Medications Bupivacaine HCl (Marcaine 0.5%) Confirm Administered Dose 30 ml .ROUTE .STK-MED ONE Stop: 03/15/18 13:21 Fentanyl (Sublimaze) Confirm Administered Dose 250 mcg .ROUTE .STK-MED ONE Stop: 03/15/18 13:48 Glycopyrrolate (Robinul) Confirm Administered Dose 0.2 mg .ROUTE .STK-MED ONE Stop: 03/15/18 13:57 Hydromorphone HCl (Dilaudid) 0.5 mg IVPUSH ONETIME ONE Stop: 03/15/18 10:45 Last Admin: 03/15/18 10:56 Dose: Not Given Hydromorphone HCl (Dilaudid) 1 mg IM ONETIME ONE Stop: 03/15/18 10:47 Last Admin: 03/15/18 10:56 Dose: Not Given Hydromorphone HCl (Dilaudid) 1 mg IVPUSH ONETIME ONE Stop: 03/15/18 10:55 Last Admin: 03/15/18 10:55 Dose: 1 mg Hydromorphone HCl (Dilaudid) 1 mg IVPUSH ONETIME ONE Stop: 03/15/18 11:28 Last Admin: 03/15/18 11:34 Dose: 1 mg Hydromorphone HCl (Dilaudid) 1 mg IVPUSH ONETIME ONE Stop: 03/15/18 13:41 Last Admin: 03/15/18 13:44 Dose: 1 mg Hydromorphone HCl (Dilaudid) 0.5 mg IVPUSH Q1H PRN PRN Reason: Abdominal Pain Last Admin: 03/16/18 07:55 Dose: 0.5 mg Sodium Chloride (Normal Saline) 1,000 mls @ 999 mls/hr IV .Bolus ONE Stop: 03/15/18 11:00 Last Admin: 03/15/18 10:17 Dose: 999 mls/hr Piperacillin Sod/Tazobactam (Sod 3.375 gm/ Sodium Chloride) 50 mls @ 100 mls/ hr IV ONETIME ONE Stop: 03/15/18 12:45 Last Admin: 03/15/18 12:40 Dose: 100 mls/hr Lactated Ringer's (Ringers, Lactated) 1,000 mls @ 999 mls/hr IV .BOLUS ONE Stop: 03/15/18 13:17 Last Admin: 03/15/18 12:39 Dose: 999 mls/hr Iopamidol (Isovue Multipack-370 (76%)) 100 ml IVPUSH ONETIME STA Stop: 03/15/18 16:00 Last Admin: 03/15/18 16:01 Dose: 100 ml Ketorolac Tromethamine (Toradol) Confirm Administered Dose 30 mg .ROUTE .STK- MED ONE Stop: 03/15/18 13:57 Lidocaine (Xylocaine-Mpf 2%) Confirm Administered Dose 5 ml .ROUTE .STK-MED ONE Stop: 03/15/18 13:57 Meperidine HCl (Demerol) 25 mg IVPUSH ONETIME ONE Stop: 03/15/18 15:53 Last Admin: 03/15/18 15:57 Dose: 25 mg Midazolam HCl (Versed 1 Mg/Ml) Confirm Administered Dose 2 mg .ROUTE .STK-MED ONE Stop: 03/15/18 13:48 Morphine Sulfate (Morphine) 4 mg IVPUSH ONETIME ONE Stop: 03/15/18 10:01 Last Admin: 03/15/18 10:17 Dose: 4 mg Ondansetron HCl (Zofran) 4 mg IVPUSH ONETIME ONE Stop: 03/15/18 10:01 Last Admin: 03/15/18 10:17 Dose: 4 mg Ondansetron HCl (Zofran) Confirm Administered Dose 4 mg .ROUTE .STK-MED ONE Stop: 03/15/18 13:57 Phenylephrine HCl (Phenylephrine In Ns 100 Mcg/Ml) Confirm Administered Dose 1 mg .ROUTE .STK-MED ONE Stop: 03/15/18 14:23 Propofol (Diprivan 20 Ml) Confirm Administered Dose 200 mg .ROUTE .STK-MED ONE Stop: 03/15/18 13:48 Rocuronium [place] (Zemuron) Confirm Administered Dose 100 mg .ROUTE .STK-MED ONE Stop: 03/15/18 13:57 Succinylcholine Chloride (Quelicin) Confirm Administered Dose 200 mg .ROUTE .STK -MED ONE Stop: 03/15/18 13:57 Sugammadex Sodium (Bridion) Confirm Administered Dose 200 mg .ROUTE .STK-MED ONE Stop: 03/15/18 13:54 Last Admin: 03/15/18 16:08 Dose: Not Given - Exam Wound/Incisions: Healing Well, Dressing Dry and Intact General: Alert, Oriented HEENT: Pupils Equal, Pupils Reactive Lungs: Normal Respiratory Effort Cardiovascular: Regular Rate GI/Abdominal Exam: Soft, No Distention, No Mass, Tender (Mild RLQ tenderness). No: Guarding, Rigid, Rebound Skin: Warm, Dry, Intact Neurological: No New Focal Deficit - Problem List & Annotations (1) Acute appendicitis with rupture SNOMED Code(s): 90448040, 88955993 Code(s): K35.2 - ACUTE APPENDICITIS WITH GENERALIZED PERITONITIS Status: Acute Current Visit: Yes - Problem List Review Problem List Initiated/Reviewed/Updated: Yes - My Orders Last 24 Hours: Active Orders 24 hr Category Date Time Status Patient Status [ADT] Routine ADT 03/15/18 15:37 Active Transfer Patient (Change bed) [ADT] Routine ADT 03/16/18 07:39 Ordered Intake and Output [RC] Q4HR Care 03/15/18 15:38 Active Notify Provider Vital Signs [RC] PRN Care 03/15/18 15:40 Active Oxygen Therapy [RC] PRN Care 03/15/18 15:37 Active RT Incentive Spirometry [RC] Q1HWA Care 03/15/18 15:37 Active Up ad Kristi [RC] ASDIRECTED Care 03/15/18 15:37 Active Verify Patient Consent Obtain [RC] ASDIRECTED Care 03/15/18 13:07 Active Vital Signs [RC] Q4H Care 03/15/18 15:37 Active Clear Liquid Diet [DIET] Diet 03/15/18 Dinner Active Regular Diet [DIET] Diet 03/16/18 Lunch Active Abdomen Pelvis w Cont [CT] Stat Exams 03/15/18 10:44 Taken CBC WITH AUTO DIFF [HEME] AM Lab 03/17/18 05:11 Ordered CBC WITH AUTO DIFF [HEME] AM Lab 03/18/18 05:11 Ordered CBC WITH AUTO DIFF [HEME] AM Lab 03/19/18 05:11 Ordered CBC WITH AUTO DIFF [HEME] AM Lab 03/20/18 05:11 Ordered Acetaminophen [Tylenol] Med 03/15/18 15:37 Active 650 mg PO Q6H PRN HYDROmorphone [Dilaudid] Med 03/16/18 08:30 Active 0.5 mg IVPUSH Q1H PRN Lactated Ringers [Ringers, Lactated] 1,000 ml Med 03/15/18 15:45 Active IV ASDIRECTED Ondansetron [Zofran] Med 03/15/18 15:37 Active 4 mg IVPUSH Q6H PRN Piperacillin/Tazobactam [Piperacil-Tazobact] 3.375 gm Med 03/15/18 20:00 Active Sodium Chloride 0.9% [Normal Saline] 50 ml IV Q6H Promethazine [Phenergan] Med 03/15/18 15:37 Active 25 mg IM Q6H PRN Sodium Chloride 0.9% [Saline Flush] Med 03/15/18 10:00 Active 10 ml FLUSH ASDIRECTED PRN Sodium Chloride 0.9% [Saline Flush] Med 03/15/18 10:00 Active 2.5 ml FLUSH ASDIRECTED PRN fentaNYL [Sublimaze] Med 03/15/18 13:59 Active 50 mcg IVPUSH Q5M PRN Saline Lock Insert [OM.PC] Stat Oth 03/15/18 09:59 Ordered Sequential Compression Device [OM.PC] Routine Oth 03/15/18 13:07 Ordered Resuscitation Status Routine Resus Stat 03/15/18 13:07 Ordered Medication Orders Acetaminophen (Tylenol) 650 mg PO Q6H PRN PRN Reason: Pain (mild 1-3) Fentanyl (Sublimaze) 50 mcg IVPUSH Q5M PRN PRN Reason: Pain Hydromorphone HCl (Dilaudid) 0.5 mg IVPUSH Q1H PRN PRN Reason: Abdominal Pain Lactated Ringer's (Ringers, Lactated) 1,000 mls @ 150 mls/hr IV ASDIRECTED [facility] Last Admin: 03/16/18 06:54 Dose: 150 mls/hr Infusion: 03/16/18 06:14 Dose: 150 mls/hr Admin: 03/15/18 23:33 Dose: 150 mls/hr Infusion: 03/15/18 23:16 Dose: 150 mls/hr Admin: 03/15/18 16:35 Dose: 150 mls/hr Piperacillin Sod/Tazobactam (Sod 3.375 gm/ Sodium Chloride) 50 mls @ 100 mls/ hr IV Q6H [facility] Last Admin: 03/16/18 07:58 Dose: 100 mls/hr Infusion: 03/16/18 02:15 Dose: 100 mls/hr Admin: 03/16/18 01:45 Dose: 100 mls/hr Infusion: 03/15/18 20:24 Dose: 100 mls/hr Admin: 03/15/18 19:54 Dose: 100 mls/hr Ondansetron HCl (Zofran) 4 mg IVPUSH Q6H PRN PRN Reason: Nausea/Vomiting Last Admin: 03/16/18 07:55 Dose: 4 mg Admin: 03/15/18 23:33 Dose: 4 mg Admin: 03/15/18 16:57 Dose: 4 mg Promethazine HCl (Phenergan) 25 mg IM Q6H PRN PRN Reason: Nausea Last Admin: 03/15/18 19:06 Dose: 25 mg Sodium Chloride (Saline Flush) 10 ml FLUSH ASDIRECTED PRN PRN Reason: Keep Vein Open Sodium Chloride (Saline Flush) 2.5 ml FLUSH ASDIRECTED PRN PRN Reason: Keep Vein Open - Plan Plan (Free Text/Narrative):: Stable overnight and WBC normal today. Will advance diet, transfer out of ICU, but continue IV zosyn for today given her purulent peritonitis. If she remains stable and WBC still low tomorrow, may be able to discharge home.
[2018-03-16] MEDS: Acetaminophen 325 MG Tab PO PRN ×2 (11:57→18:55)
[2018-03-16] MEDS: Promethazine 25 MG/ML SDV IM PRN (12:01)
[2018-03-16] MEDS ORDERED: Scopolamine 1.5 MG Transdermal Patch TRDERM PRN (12:09)
[2018-03-16] MEDS ORDERED: Morphine 2 MG/ML Syringe IVPUSH PRN (12:10)
[2018-03-16] MEDS: oxyCODONE 5 MG Tab PO PRN ×2 (14:17→18:55)
[2018-03-16] MEDS ORDERED: Ketorolac 10 MG Tab PO PRN (20:00)
[2018-03-16] MEDS: diphenhydrAMINE 50 MG Cap PO PRN (20:06)
[2018-03-17] MEDS: Piperacillin/Tazobactam 3.375 GM in Sodium Chloride 0.9% 50 ML IV SCH ×2 (01:55→07:50)
[2018-03-17] MEDS: Acetaminophen 325 MG Tab PO PRN (02:21)
[2018-03-17] MEDS: oxyCODONE 5 MG Tab PO PRN ×2 (08:36→13:30)
[2018-03-17] MEDS: Ciprofloxacin 500 MG Tab PO SCH ×2 (08:39→21:04)
[2018-03-17] MEDS: metroNIDAZOLE 250 MG Tab PO SCH ×3 (08:39→21:03)
[2018-03-17] MEDS: Ondansetron 4 MG/2 ML SDV IVPUSH PRN (08:44)
[2018-03-17] MEDS: Polyethylene Glycol 3350 Powder 17 GM Packet PO SCH (08:44)
[2018-03-17] MEDS: Ketorolac 10 MG Tab PO SCH ×3 (08:44→21:03)
--- NOTE | 2018-03-17 08:51 | PCM.SURGPN ---
- General Info Date of Service: 03/17/18 Date of Surgery/Procedure: 03/15/18 POD#: 2 Functional Status: Reports: Other (Patient having abdominal distension and bloating. She has pain with sitting up and moving. She is reluctant to get out of bed. Narcotics are making her itch however this is improved with benadryl. Did pass flatus once last evening. No fevers. No vomiting. Nauseated only with pain) - Review of Systems General: Reports: Weakness, Fatigue Pulmonary: Reports: No Symptoms Cardiovascular: Reports: No Symptoms Gastrointestinal: Reports: Abdominal Pain, Nausea - Patient Data Vitals - Most Recent: Last Vital Signs Temp 36.3 C 03/17/18 08:00 Pulse 106 H 03/17/18 08:00 Resp 16 03/17/18 08:00 BP 85/50 L 03/17/18 08:00 Pulse Ox 93 L 03/17/18 08:00 Weight - Most Recent: 62.5 kg I&O - Last 24 Hours: Intake & Output 03/16/18 03/17/18 03/17/18 22:59 06:59 14:59 Intake Total 770 350 Output Total 225 400 150 Balance 545 -50 -150 Lab Results Last 24 Hrs: Laboratory Results - last 24 hr 03/17/18 Range/Units 05:11 WBC 9.90 (4.0-11.0) K/uL RBC 3.86 L (4.30-5.90) M/uL Hgb 11.2 L (12.0-16.0) g/dL Hct 33.1 L (36.0-46.0) % MCV 85.8 (80.0-98.0) fL MCH 29.0 (27.0-32.0) pg MCHC 33.8 (31.0-37.0) g/dL RDW Std Deviation 40.8 (28.0-62.0) fl RDW Coeff of [place] 13 (11.0-15.0) % Plt Count 140 L (150-400) K/uL MPV 11.10 (7.40-12.00) fL Neut % (Auto) 82.0 H (48.0-80.0) % Lymph % (Auto) 8.7 L (16.0-40.0) % [place] % (Auto) 9.1 (0.0-15.0) % Eos % (Auto) 0.1 (0.0-7.0) % Baso % (Auto) 0.1 (0.0-1.5) % Neut # (Auto) 8.1 H (1.4-5.7) K/uL Lymph # (Auto) 0.9 (0.6-2.4) K/uL [place] # (Auto) 0.9 H (0.0-0.8) K/uL Eos # (Auto) 0.0 (0.0-0.7) K/uL Baso # (Auto) 0.0 (0.0-0.1) K/uL Nucleated RBC % 0.0 /100WBC Nucleated RBCs # 0 K/uL Med Orders - Current: Current Medications Acetaminophen (Tylenol) 650 mg PO Q6H PRN PRN Reason: Pain (mild 1-3) Last Admin: 03/17/18 02:21 Dose: 650 mg Ciprofloxacin (Ciprofloxacin Hcl) 500 mg PO BID [facility] Last Admin: 03/17/18 08:39 Dose: 500 mg Cyclobenzaprine HCl (Flexeril) 5 mg PO TID [facility] Diphenhydramine HCl (Benadryl) 50 mg PO Q6H PRN PRN Reason: Itching Last Admin: 03/16/18 20:06 Dose: 50 mg Fentanyl (Sublimaze) 50 mcg IVPUSH Q5M PRN PRN Reason: Pain Ketorolac Tromethamine (Toradol) 10 mg PO Q6H [facility] Stop: 03/22/18 08:46 Metronidazole (Metronidazole) 250 mg PO Q6H [facility] Last Admin: 03/17/18 08:39 Dose: 250 mg Morphine Sulfate (Morphine) 2 mg IVPUSH Q2H PRN PRN Reason: Abdominal Pain Ondansetron HCl (Zofran) 4 mg IVPUSH Q6H PRN PRN Reason: Nausea/Vomiting Last Admin: 03/16/18 07:55 Dose: 4 mg Oxycodone HCl (Oxycodone) 10 mg PO Q4H PRN PRN Reason: Abdominal Pain Last Admin: 03/17/18 08:36 Dose: 10 mg Polyethylene Glycol (Miralax) 17 gm PO DAILY [facility] Promethazine HCl (Phenergan) 25 mg IM Q6H PRN PRN Reason: Nausea Last Admin: 03/16/18 12:01 Dose: 25 mg Scopolamine (Transderm-Scop) 1.5 mg TRDERM Q72H PRN PRN Reason: Nausea Last Admin: 03/16/18 14:16 Dose: 1.5 mg Sodium Chloride (Saline Flush) 10 ml FLUSH ASDIRECTED PRN PRN Reason: Keep Vein Open Sodium Chloride (Saline Flush) 2.5 ml FLUSH ASDIRECTED PRN PRN Reason: Keep Vein Open Discontinued Medications Bupivacaine HCl (Marcaine 0.5%) Confirm Administered Dose 30 ml .ROUTE .STK-MED ONE Stop: 03/15/18 13:21 Fentanyl (Sublimaze) Confirm Administered Dose 250 mcg .ROUTE .STK-MED ONE Stop: 03/15/18 13:48 Glycopyrrolate (Robinul) Confirm Administered Dose 0.2 mg .ROUTE .STK-MED ONE Stop: 03/15/18 13:57 Hydromorphone HCl (Dilaudid) 0.5 mg IVPUSH ONETIME ONE Stop: 03/15/18 10:45 Last Admin: 03/15/18 10:56 Dose: Not Given Hydromorphone HCl (Dilaudid) 1 mg IM ONETIME ONE Stop: 03/15/18 10:47 Last Admin: 03/15/18 10:56 Dose: Not Given Hydromorphone HCl (Dilaudid) 1 mg IVPUSH ONETIME ONE Stop: 03/15/18 10:55 Last Admin: 03/15/18 10:55 Dose: 1 mg Hydromorphone HCl (Dilaudid) 1 mg IVPUSH ONETIME ONE Stop: 03/15/18 11:28 Last Admin: 03/15/18 11:34 Dose: 1 mg Hydromorphone HCl (Dilaudid) 1 mg IVPUSH ONETIME ONE Stop: 03/15/18 13:41 Last Admin: 03/15/18 13:44 Dose: 1 mg Hydromorphone HCl (Dilaudid) 0.5 mg IVPUSH Q1H PRN PRN Reason: Abdominal Pain Last Admin: 03/16/18 07:55 Dose: 0.5 mg Hydromorphone HCl (Dilaudid) 0.5 mg IVPUSH Q1H PRN PRN Reason: Abdominal Pain Last Admin: 03/16/18 11:57 Dose: 0.5 mg Sodium Chloride (Normal Saline) 1,000 mls @ 999 mls/hr IV .Bolus ONE Stop: 03/15/18 11:00 Last Admin: 03/15/18 10:17 Dose: 999 mls/hr Piperacillin Sod/Tazobactam (Sod 3.375 gm/ Sodium Chloride) 50 mls @ 100 mls/ hr IV ONETIME ONE Stop: 03/15/18 12:45 Last Admin: 03/15/18 12:40 Dose: 100 mls/hr Lactated Ringer's (Ringers, Lactated) 1,000 mls @ 999 mls/hr IV .BOLUS ONE Stop: 03/15/18 13:17 Last Admin: 03/15/18 12:39 Dose: 999 mls/hr Lactated Ringer's (Ringers, Lactated) 1,000 mls @ 150 mls/hr IV ASDIRECTED [facility] Last Admin: 03/16/18 14:15 Dose: 150 mls/hr Piperacillin Sod/Tazobactam (Sod 3.375 gm/ Sodium Chloride) 50 mls @ 100 mls/ hr IV Q6H [facility] Last Admin: 03/17/18 07:50 Dose: 100 mls/hr Iopamidol (Isovue Multipack-370 (76%)) 100 ml IVPUSH ONETIME STA Stop: 03/15/18 16:00 Last Admin: 03/15/18 16:01 Dose: 100 ml Ketorolac Tromethamine (Toradol) Confirm Administered Dose 30 mg .ROUTE .STK- MED ONE Stop: 03/15/18 13:57 Ketorolac Tromethamine (Toradol) 10 mg PO Q6H PRN PRN Reason: Abdominal Pain Stop: 03/21/18 20:01 Last Admin: 03/17/18 02:20 Dose: 10 mg Lidocaine (Xylocaine-Mpf 2%) Confirm Administered Dose 5 ml .ROUTE .STK-MED ONE Stop: 03/15/18 13:57 Meperidine HCl (Demerol) 25 mg IVPUSH ONETIME ONE Stop: 03/15/18 15:53 Last Admin: 03/15/18 15:57 Dose: 25 mg Midazolam HCl (Versed 1 Mg/Ml) Confirm Administered Dose 2 mg .ROUTE .STK-MED ONE Stop: 03/15/18 13:48 Morphine Sulfate (Morphine) 4 mg IVPUSH ONETIME ONE Stop: 03/15/18 10:01 Last Admin: 03/15/18 10:17 Dose: 4 mg Ondansetron HCl (Zofran) 4 mg IVPUSH ONETIME ONE Stop: 03/15/18 10:01 Last Admin: 03/15/18 10:17 Dose: 4 mg Ondansetron HCl (Zofran) Confirm Administered Dose 4 mg .ROUTE .STK-MED ONE Stop: 03/15/18 13:57 Phenylephrine HCl (Phenylephrine In Ns 100 Mcg/Ml) Confirm Administered Dose 1 mg .ROUTE .STK-MED ONE Stop: 03/15/18 14:23 Propofol (Diprivan 20 Ml) Confirm Administered Dose 200 mg .ROUTE .STK-MED ONE Stop: 03/15/18 13:48 Rocuronium [place] (Zemuron) Confirm Administered Dose 100 mg .ROUTE .STK-MED ONE Stop: 03/15/18 13:57 Succinylcholine Chloride (Quelicin) Confirm Administered Dose 200 mg .ROUTE .STK -MED ONE Stop: 03/15/18 13:57 Sugammadex Sodium (Bridion) Confirm Administered Dose 200 mg .ROUTE .STK-MED ONE Stop: 03/15/18 13:54 Last Admin: 03/15/18 16:08 Dose: Not Given - Exam Wound/Incisions: Healing Well General: Alert, Oriented, Mild Distress HEENT: Pupils Equal Lungs: Normal Respiratory Effort Cardiovascular: Tachycardia GI/Abdominal Exam: Soft, Distended, Tender (Generalized but mild). No: Guarding , Rigid, Rebound Skin: Warm, Dry, Intact Neurological: No New Focal Deficit Psy/Mental Status: Alert, Normal Affect, Anxious - Problem List & Annotations (1) Acute appendicitis with rupture SNOMED Code(s): 85721617, [id number] Code(s): K35.2 - ACUTE APPENDICITIS WITH GENERALIZED PERITONITIS Status: Acute Current Visit: Yes - Problem List Review Problem List Initiated/Reviewed/Updated: Yes - My Orders Last 24 Hours: Active Orders 24 hr Category Date Time Status Regular Diet [DIET] Diet 03/16/18 Lunch Active CBC WITH AUTO DIFF [HEME] AM Lab 03/18/18 05:11 Ordered CBC WITH AUTO DIFF [HEME] AM Lab 03/19/18 05:11 Ordered CBC WITH AUTO DIFF [HEME] AM Lab 03/20/18 05:11 Ordered Ciprofloxacin [Ciprofloxacin HCl] Med 03/17/18 09:00 Active 500 mg PO BID Cyclobenzaprine [Flexeril] Med 03/17/18 14:00 Ordered 5 mg PO TID Docusate Sodium/Sennosides [Senokot-S] Med 03/17/18 21:00 Ordered 1 each PO BEDTIME Ketorolac [Toradol] Med 03/17/18 08:45 Ordered 10 mg PO Q6H Morphine Med 03/16/18 12:10 Active 2 mg IVPUSH Q2H PRN Polyethylene Glycol 3350 [MiraLAX] Med 03/17/18 09:00 Ordered 17 gm PO DAILY Scopolamine [Transderm-Scop] Med 03/16/18 12:09 Active 1.5 mg TRDERM Q72H PRN diphenhydrAMINE [Benadryl] Med 03/16/18 20:00 Active 50 mg PO Q6H PRN metroNIDAZOLE Med 03/17/18 08:30 Active 250 mg PO Q6H oxyCODONE Med 03/16/18 12:09 Active 10 mg PO Q4H PRN Medication Orders Acetaminophen (Tylenol) 650 mg PO Q6H PRN PRN Reason: Pain (mild 1-3) Last Admin: 03/17/18 02:21 Dose: 650 mg Admin: 03/16/18 18:55 Dose: 650 mg Admin: 03/16/18 11:57 Dose: 650 mg Ciprofloxacin (Ciprofloxacin Hcl) 500 mg PO BID [facility] Last Admin: 03/17/18 08:39 Dose: 500 mg Cyclobenzaprine HCl (Flexeril) 5 mg PO TID [facility] Diphenhydramine HCl (Benadryl) 50 mg PO Q6H PRN PRN Reason: Itching Last Admin: 03/16/18 20:06 Dose: 50 mg Fentanyl (Sublimaze) 50 mcg IVPUSH Q5M PRN PRN Reason: Pain Ketorolac Tromethamine (Toradol) 10 mg PO Q6H [facility] Stop: 03/22/18 08:46 Metronidazole (Metronidazole) 250 mg PO Q6H [facility] Last Admin: 03/17/18 08:39 Dose: 250 mg Morphine Sulfate (Morphine) 2 mg IVPUSH Q2H PRN PRN Reason: Abdominal Pain Ondansetron HCl (Zofran) 4 mg IVPUSH Q6H PRN PRN Reason: Nausea/Vomiting Last Admin: 03/16/18 07:55 Dose: 4 mg Admin: 03/15/18 23:33 Dose: 4 mg Admin: 03/15/18 16:57 Dose: 4 mg Oxycodone HCl (Oxycodone) 10 mg PO Q4H PRN PRN Reason: Abdominal Pain Last Admin: 03/17/18 08:36 Dose: 10 mg Admin: 03/16/18 18:55 Dose: 10 mg Admin: 03/16/18 14:17 Dose: 10 mg Polyethylene Glycol (Miralax) 17 gm PO DAILY [facility] Promethazine HCl (Phenergan) 25 mg IM Q6H PRN PRN Reason: Nausea Last Admin: 03/16/18 12:01 Dose: 25 mg Admin: 03/15/18 19:06 Dose: 25 mg Scopolamine (Transderm-Scop) 1.5 mg TRDERM Q72H PRN PRN Reason: Nausea Last Admin: 03/16/18 14:16 Dose: 1.5 mg Sodium Chloride (Saline Flush) 10 ml FLUSH ASDIRECTED PRN PRN Reason: Keep Vein Open Sodium Chloride (Saline Flush) 2.5 ml FLUSH ASDIRECTED PRN PRN Reason: Keep Vein Open - Plan Plan (Free Text/Narrative):: -Pain: WIll schedule flexeril 5mg TID and toradol 10mg q 6hr for pain control. This will hopefully help wean off narcotics which make her itchy and may contribute to ileus. OK to get narcotics but would give benadryl along with them. If still getting itchy with po meds can try to switch to norco -GI: Patient had some flatus last night but her abdomen is distended today. She most likely is trying to developing an ileus. She is still tolerating a diet and hasnt vomited so will continue with diet as tolerated but educated patient on eating small frequent meals and sticking to mainly liquids. I wrote for Miralax, senna and docusate to be given today. I encouraged OOB activity as much as possible to help with bowel motility as well. Will give a Multivitamin as well to replace nutrients. -CV: Patient's blood pressure baseline is low and that has continued during this admission. Her heart rate is around the 100s and goes higher with pain or distress. Will continue to monitor. -ID: WBC is within normal limits today. Will switch to po ciprofloxacin and flagyl today. No fevers. -Renal: Making good UOP. IVF on hold for now. -Px: Will start daily heparin for DVT px. SCDs while in bed.
[2018-03-17] MEDS: Multivitamin Tab PO SCH (09:42)
[2018-03-17] MEDS: Heparin Sodium 5,000 Units/ML Vial SUBCUT SCH ×2 (09:42→21:04)
--- NOTE | 2018-03-17 10:18 | CT ---
EXAM DATE: 03/15/18 PATIENT'S AGE: 33 Patient: JOHN ALMANZA Facility: [place], [place] Site . Site : [id number] Study: CT Abdomen/Pelvis [id number]/15/2018 11:41:19 AM Ordering Physician: Woo Hernandez Final Report: INDICATION: Abdominal pain TECHNIQUE: CT abdomen and pelvis acquired with IV contrast. COMPARISON: None FINDINGS: In the lower thorax and there are no masses or effusions. The liver, spleen, pancreas, adrenal glands, kidneys, urinary bladder and ovaries appear normal with small follicles present in both ovaries. An IUD appears appropriately positioned within the retroflexed uterus. On axial images 86 through 103 of series 201 there is an abnormal retrocecal appendix with mucosal wall thickening, periappendiceal fat stranding and dilation (14 millimeters in diameter). A small amount of fluid adjacent to the tip of the appendix is suspicious for micro perforation. No significant abscess formation is noted. No gastric, small wall or colonic abnormalities are seen. No lymphadenopathy or ascites is seen. A circumaortic left renal vein is incidentally noted as a normal variant. No osseous lesions are seen. IMPRESSION: 1. Acute appendicitis as detailed above. 2. Other incidental findings are as detailed above Please note that all CT scans at this facility use dose modulation, iterative reconstruction, and/or weight-based dosing when appropriate to reduce radiation dose to as low as reasonably achievable. Dictated by Roberto Naik MD @ Mar 15 2018 12:00PM (Electronic Signature) Report Signed by Proxy. [place]
[2018-03-17] MEDS: Cyclobenzaprine 5 MG Tab PO SCH ×2 (14:32→21:03)
[2018-03-17] MEDS: diphenhydrAMINE 50 MG Cap PO PRN (21:03)
[2018-03-18] MEDS: Ketorolac 10 MG Tab PO SCH ×4 (03:23→21:15)
[2018-03-18] MEDS: metroNIDAZOLE 250 MG Tab PO SCH ×4 (03:23→21:17)
[2018-03-18] MEDS: Cyclobenzaprine 5 MG Tab PO SCH ×3 (06:40→21:16)
[2018-03-18] MEDS: oxyCODONE 5 MG Tab PO PRN ×2 (06:43→16:30)
[2018-03-18] MEDS: Multivitamin Tab PO SCH (08:23)
[2018-03-18] MEDS: Ciprofloxacin 500 MG Tab PO SCH ×2 (08:23→21:16)
[2018-03-18] MEDS: Polyethylene Glycol 3350 Powder 17 GM Packet PO SCH (08:25)
[2018-03-18] MEDS: Heparin Sodium 5,000 Units/ML Vial SUBCUT SCH ×2 (08:25→21:17)
[2018-03-18] MEDS ORDERED: Bisacodyl 10 MG Supp RECTAL ONE (13:46)
[2018-03-18] MEDS ORDERED: Magnesium Citrate Solution 296 ML Bottle PO ONE (13:46)
--- NOTE | 2018-03-18 13:50 | PCM.SURGPN ---
- General Info Date of Service: 03/18/18 Date of Surgery/Procedure: 03/15/18 POD#: 3 Functional Status: Reports: Pain Controlled, Tolerating Diet, Ambulating, Other (Having bloody nose. Platelets are stable. WBC is normal. VS stable. ) - Review of Systems General: Reports: No Symptoms Pulmonary: Reports: No Symptoms Cardiovascular: Reports: No Symptoms Gastrointestinal: Reports: Decreased Appetite, Other (distended) Genitourinary: Reports: No Symptoms - Patient Data Vitals - Most Recent: Last Vital Signs Temp 36.4 C 03/18/18 08:00 Pulse 111 H 03/18/18 08:00 Resp 14 03/18/18 08:00 BP 87/53 L 03/18/18 08:00 Pulse Ox 94 L 03/18/18 08:00 Weight - Most Recent: 62.5 kg I&O - Last 24 Hours: Intake & Output 03/17/18 03/18/18 03/18/18 22:59 06:59 14:59 Intake Total 240 750 Output Total 300 250 Balance -60 500 Lab Results Last 24 Hrs: Laboratory Results - last 24 hr 03/18/18 Range/Units 05:08 WBC 6.30 (4.0-11.0) K/uL RBC 3.52 L (4.30-5.90) M/uL Hgb 10.2 L (12.0-16.0) g/dL Hct 30.2 L (36.0-46.0) % MCV 85.8 (80.0-98.0) fL MCH 29.0 (27.0-32.0) pg MCHC 33.8 (31.0-37.0) g/dL RDW Std Deviation 40.7 (28.0-62.0) fl RDW Coeff of Severo 13 (11.0-15.0) % Plt Count 141 L (150-400) K/uL MPV 10.90 (7.40-12.00) fL Neut % (Auto) 71.8 (48.0-80.0) % Lymph % (Auto) 14.6 L (16.0-40.0) % [place] % (Auto) 12.1 (0.0-15.0) % Eos % (Auto) 1.3 (0.0-7.0) % Baso % (Auto) 0.2 (0.0-1.5) % Neut # (Auto) 4.5 (1.4-5.7) K/uL Lymph # (Auto) 0.9 (0.6-2.4) K/uL [place] # (Auto) 0.8 (0.0-0.8) K/uL Eos # (Auto) 0.1 (0.0-0.7) K/uL Baso # (Auto) 0.0 (0.0-0.1) K/uL Nucleated RBC % 0.0 /100WBC Nucleated RBCs # 0 K/uL Med Orders - Current: Current Medications Acetaminophen (Tylenol) 650 mg PO Q6H PRN PRN Reason: Pain (mild 1-3) Last Admin: 03/17/18 02:21 Dose: 650 mg Ciprofloxacin (Ciprofloxacin Hcl) 500 mg PO BID [facility] Last Admin: 03/18/18 08:23 Dose: 500 mg Cyclobenzaprine HCl (Flexeril) 5 mg PO TID [facility] Last Admin: 03/18/18 06:40 Dose: 5 mg Diphenhydramine HCl (Benadryl) 50 mg PO Q6H PRN PRN Reason: Itching Last Admin: 03/17/18 21:03 Dose: 50 mg Fentanyl (Sublimaze) 50 mcg IVPUSH Q5M PRN PRN Reason: Pain Heparin Sodium (Porcine) (Heparin Sodium) 5,000 units SUBCUT Q12H [facility] Last Admin: 03/18/18 08:25 Dose: 5,000 units Ketorolac Tromethamine (Toradol) 10 mg PO Q6H [facility] Stop: 03/22/18 08:46 Last Admin: 03/18/18 08:23 Dose: 10 mg Metronidazole (Metronidazole) 250 mg PO Q6H [facility] Last Admin: 03/18/18 08:23 Dose: 250 mg Morphine Sulfate (Morphine) 2 mg IVPUSH Q2H PRN PRN Reason: Abdominal Pain Multivitamins/Minerals/Vitamin C (Tab-A-Pal) 1 tab PO DAILY [facility] Last Admin: 03/18/18 08:23 Dose: 1 tab Ondansetron HCl (Zofran) 4 mg IVPUSH Q6H PRN PRN Reason: Nausea/Vomiting Last Admin: 03/17/18 08:44 Dose: 4 mg Oxycodone HCl (Oxycodone) 10 mg PO Q4H PRN PRN Reason: Abdominal Pain Last Admin: 03/18/18 06:43 Dose: 10 mg Polyethylene Glycol (Miralax) 17 gm PO DAILY [facility] Last Admin: 03/18/18 08:25 Dose: 17 gm Promethazine HCl (Phenergan) 25 mg IM Q6H PRN PRN Reason: Nausea Last Admin: 03/16/18 12:01 Dose: 25 mg Scopolamine (Transderm-Scop) 1.5 mg TRDERM Q72H PRN PRN Reason: Nausea Last Admin: 03/16/18 14:16 Dose: 1.5 mg Senna/Docusate Sodium (Senna Plus) 1 tab PO BEDTIME [facility] Last Admin: 03/17/18 21:04 Dose: 1 tab Sodium Chloride (Saline Flush) 10 ml FLUSH ASDIRECTED PRN PRN Reason: Keep Vein Open Sodium Chloride (Saline Flush) 2.5 ml FLUSH ASDIRECTED PRN PRN Reason: Keep Vein Open Discontinued Medications Bupivacaine HCl (Marcaine 0.5%) Confirm Administered Dose 30 ml .ROUTE .STK-MED ONE Stop: 03/15/18 13:21 Fentanyl (Sublimaze) Confirm Administered Dose 250 mcg .ROUTE .STK-MED ONE Stop: 03/15/18 13:48 Glycopyrrolate (Robinul) Confirm Administered Dose 0.2 mg .ROUTE .STK-MED ONE Stop: 03/15/18 13:57 Hydromorphone HCl (Dilaudid) 0.5 mg IVPUSH ONETIME ONE Stop: 03/15/18 10:45 Last Admin: 03/15/18 10:56 Dose: Not Given Hydromorphone HCl (Dilaudid) 1 mg IM ONETIME ONE Stop: 03/15/18 10:47 Last Admin: 03/15/18 10:56 Dose: Not Given Hydromorphone HCl (Dilaudid) 1 mg IVPUSH ONETIME ONE Stop: 03/15/18 10:55 Last Admin: 03/15/18 10:55 Dose: 1 mg Hydromorphone HCl (Dilaudid) 1 mg IVPUSH ONETIME ONE Stop: 03/15/18 11:28 Last Admin: 03/15/18 11:34 Dose: 1 mg Hydromorphone HCl (Dilaudid) 1 mg IVPUSH ONETIME ONE Stop: 03/15/18 13:41 Last Admin: 03/15/18 13:44 Dose: 1 mg Hydromorphone HCl (Dilaudid) 0.5 mg IVPUSH Q1H PRN PRN Reason: Abdominal Pain Last Admin: 03/16/18 07:55 Dose: 0.5 mg Hydromorphone HCl (Dilaudid) 0.5 mg IVPUSH Q1H PRN PRN Reason: Abdominal Pain Last Admin: 03/16/18 11:57 Dose: 0.5 mg Sodium Chloride (Normal Saline) 1,000 mls @ 999 mls/hr IV .Bolus ONE Stop: 03/15/18 11:00 Last Admin: 03/15/18 10:17 Dose: 999 mls/hr Piperacillin Sod/Tazobactam (Sod 3.375 gm/ Sodium Chloride) 50 mls @ 100 mls/ hr IV ONETIME ONE Stop: 03/15/18 12:45 Last Admin: 03/15/18 12:40 Dose: 100 mls/hr Lactated Ringer's (Ringers, Lactated) 1,000 mls @ 999 mls/hr IV .BOLUS ONE Stop: 03/15/18 13:17 Last Admin: 03/15/18 12:39 Dose: 999 mls/hr Lactated Ringer's (Ringers, Lactated) 1,000 mls @ 150 mls/hr IV ASDIRECTED [facility] Last Admin: 03/16/18 14:15 Dose: 150 mls/hr Piperacillin Sod/Tazobactam (Sod 3.375 gm/ Sodium Chloride) 50 mls @ 100 mls/ hr IV Q6H [facility] Last Admin: 03/17/18 07:50 Dose: 100 mls/hr Iopamidol (Isovue Multipack-370 (76%)) 100 ml IVPUSH ONETIME STA Stop: 03/15/18 16:00 Last Admin: 03/15/18 16:01 Dose: 100 ml Ketorolac Tromethamine (Toradol) Confirm Administered Dose 30 mg .ROUTE .STK- MED ONE Stop: 03/15/18 13:57 Ketorolac Tromethamine (Toradol) 10 mg PO Q6H PRN PRN Reason: Abdominal Pain Stop: 03/21/18 20:01 Last Admin: 03/17/18 02:20 Dose: 10 mg Lidocaine (Xylocaine-Mpf 2%) Confirm Administered Dose 5 ml .ROUTE .STK-MED ONE Stop: 03/15/18 13:57 Meperidine HCl (Demerol) 25 mg IVPUSH ONETIME ONE Stop: 03/15/18 15:53 Last Admin: 03/15/18 15:57 Dose: 25 mg Midazolam HCl (Versed 1 Mg/Ml) Confirm Administered Dose 2 mg .ROUTE .STK-MED ONE Stop: 03/15/18 13:48 Morphine Sulfate (Morphine) 4 mg IVPUSH ONETIME ONE Stop: 03/15/18 10:01 Last Admin: 03/15/18 10:17 Dose: 4 mg Ondansetron HCl (Zofran) 4 mg IVPUSH ONETIME ONE Stop: 03/15/18 10:01 Last Admin: 03/15/18 10:17 Dose: 4 mg Ondansetron HCl (Zofran) Confirm Administered Dose 4 mg .ROUTE .STK-MED ONE Stop: 03/15/18 13:57 Phenylephrine HCl (Phenylephrine In Ns 100 Mcg/Ml) Confirm Administered Dose 1 mg .ROUTE .STK-MED ONE Stop: 03/15/18 14:23 Propofol (Diprivan 20 Ml) Confirm Administered Dose 200 mg .ROUTE .STK-MED ONE Stop: 03/15/18 13:48 Rocuronium Taberg (Zemuron) Confirm Administered Dose 100 mg .ROUTE .STK-MED ONE Stop: 03/15/18 13:57 Succinylcholine Chloride (Quelicin) Confirm Administered Dose 200 mg .ROUTE .STK -MED ONE Stop: 03/15/18 13:57 Sugammadex Sodium (Bridion) Confirm Administered Dose 200 mg .ROUTE .STK-MED ONE Stop: 03/15/18 13:54 Last Admin: 03/15/18 16:08 Dose: Not Given - Exam Wound/Incisions: Healing Well General: Alert, Oriented Lungs: Clear to Auscultation Cardiovascular: Regular Rhythm GI/Abdominal Exam: Soft, Non-Tender, No Mass, Distended Skin: Warm, Dry, Intact - Problem List & Annotations (1) Acute appendicitis with rupture SNOMED Code(s): 52323528, [id number] Code(s): K35.2 - ACUTE APPENDICITIS WITH GENERALIZED PERITONITIS Status: Acute Current Visit: Yes - Problem List Review Problem List Initiated/Reviewed/Updated: Yes - My Orders Last 24 Hours: Active Orders 24 hr Category Date Time Status CBC WITH AUTO DIFF [HEME] AM Lab 03/19/18 05:11 Ordered CBC WITH AUTO DIFF [HEME] AM Lab 03/20/18 05:11 Ordered Bisacodyl [Dulcolax] Med 03/18/18 13:46 Once 10 mg RECTAL ONETIME ONE Cyclobenzaprine [Flexeril] Med 03/17/18 14:00 Active 5 mg PO TID Docusate Sodium/Sennosides [Senna Plus] Med 03/17/18 21:00 Active 1 tab PO BEDTIME Magnesium Citrate [Citrate of Magnesia] Med 03/18/18 13:46 Once 296 ml PO ONETIME ONE Medication Orders Acetaminophen (Tylenol) 650 mg PO Q6H PRN PRN Reason: Pain (mild 1-3) Last Admin: 03/17/18 02:21 Dose: 650 mg Admin: 03/16/18 18:55 Dose: 650 mg Admin: 03/16/18 11:57 Dose: 650 mg Ciprofloxacin (Ciprofloxacin Hcl) 500 mg PO BID [facility] Last Admin: 03/18/18 08:23 Dose: 500 mg Admin: 03/17/18 21:04 Dose: 500 mg Admin: 03/17/18 08:39 Dose: 500 mg Cyclobenzaprine HCl (Flexeril) 5 mg PO TID [facility] Last Admin: 03/18/18 06:40 Dose: 5 mg Admin: 03/17/18 21:03 Dose: 5 mg Admin: 03/17/18 14:32 Dose: 5 mg Diphenhydramine HCl (Benadryl) 50 mg PO Q6H PRN PRN Reason: Itching Last Admin: 03/17/18 21:03 Dose: 50 mg Admin: 03/16/18 20:06 Dose: 50 mg Fentanyl (Sublimaze) 50 mcg IVPUSH Q5M PRN PRN Reason: Pain Heparin Sodium (Porcine) (Heparin Sodium) 5,000 units SUBCUT Q12H [facility] Last Admin: 03/18/18 08:25 Dose: 5,000 units Admin: 03/17/18 21:04 Dose: 5,000 units Admin: 03/17/18 09:42 Dose: 5,000 units Ketorolac Tromethamine (Toradol) 10 mg PO Q6H [facility] Stop: 03/22/18 08:46 Last Admin: 03/18/18 08:23 Dose: 10 mg Admin: 03/18/18 03:23 Dose: 10 mg Admin: 03/17/18 21:03 Dose: 10 mg Admin: 03/17/18 14:32 Dose: 10 mg Admin: 03/17/18 08:44 Dose: 10 mg Metronidazole (Metronidazole) 250 mg PO Q6H [facility] Last Admin: 03/18/18 08:23 Dose: 250 mg Admin: 03/18/18 03:23 Dose: 250 mg Admin: 03/17/18 21:03 Dose: 250 mg Admin: 03/17/18 14:32 Dose: 250 mg Admin: 03/17/18 08:39 Dose: 250 mg Morphine Sulfate (Morphine) 2 mg IVPUSH Q2H PRN PRN Reason: Abdominal Pain Multivitamins/Minerals/Vitamin C (Tab-A-Pal) 1 tab PO DAILY [facility] Last Admin: 03/18/18 08:23 Dose: 1 tab Admin: 03/17/18 09:42 Dose: 1 tab Ondansetron HCl (Zofran) 4 mg IVPUSH Q6H PRN PRN Reason: Nausea/Vomiting Last Admin: 03/17/18 08:44 Dose: 4 mg Admin: 03/16/18 07:55 Dose: 4 mg Admin: 03/15/18 23:33 Dose: 4 mg Admin: 03/15/18 16:57 Dose: 4 mg Oxycodone HCl (Oxycodone) 10 mg PO Q4H PRN PRN Reason: Abdominal Pain Last Admin: 03/18/18 06:43 Dose: 10 mg Admin: 03/17/18 13:30 Dose: 10 mg Admin: 03/17/18 08:36 Dose: 10 mg Admin: 03/16/18 18:55 Dose: 10 mg Admin: 03/16/18 14:17 Dose: 10 mg Polyethylene Glycol (Miralax) 17 gm PO DAILY [facility] Last Admin: 03/18/18 08:25 Dose: 17 gm Admin: 03/17/18 08:44 Dose: 17 gm Promethazine HCl (Phenergan) 25 mg IM Q6H PRN PRN Reason: Nausea Last Admin: 03/16/18 12:01 Dose: 25 mg Admin: 03/15/18 19:06 Dose: 25 mg Scopolamine (Transderm-Scop) 1.5 mg TRDERM Q72H PRN PRN Reason: Nausea Last Admin: 03/16/18 14:16 Dose: 1.5 mg Senna/Docusate Sodium (Senna Plus) 1 tab PO BEDTIME [facility] Last Admin: 03/17/18 21:04 Dose: 1 tab Sodium Chloride (Saline Flush) 10 ml FLUSH ASDIRECTED PRN PRN Reason: Keep Vein Open Sodium Chloride (Saline Flush) 2.5 ml FLUSH ASDIRECTED PRN PRN Reason: Keep Vein Open - Plan Plan (Free Text/Narrative):: Still passing flatus, but distended, nontender, and fair appetite. Patient would like to have a more aggressive bowel regiment. Will order magnesium citrate and dulcolax suppository. Once patient has BM can discharge home since her labs are normal and she is tolerating po.
[2018-03-19] MEDS: metroNIDAZOLE 250 MG Tab PO SCH ×2 (03:48→08:21)
[2018-03-19] MEDS: Ketorolac 10 MG Tab PO SCH ×2 (03:48→08:21)
[2018-03-19] MEDS: Cyclobenzaprine 5 MG Tab PO SCH (05:41)
[2018-03-19] MEDS ORDERED: Magnesium Citrate Solution 296 ML Bottle PO ONE (07:00)
[2018-03-19 08:20] VITALS: BP 92/57
[2018-03-19] MEDS: Multivitamin Tab PO SCH (08:21)
[2018-03-19] MEDS: Ciprofloxacin 500 MG Tab PO SCH (08:22)
[2018-03-19] MEDS: Polyethylene Glycol 3350 Powder 17 GM Packet PO SCH (08:22)
[2018-03-19] MEDS: Heparin Sodium 5,000 Units/ML Vial SUBCUT SCH (08:23)
--- NOTE | 2018-03-19 08:31 | PCM.DCSUM1 ---
Discharge Summary - Hospital Course Free Text/Narrative:: Patient is a 33 year old female who presented with 24 hours of abdominal pain. Her WBC was 17K and her CT scan showed ruptured appendicitis. She was take to the OR for a laparoscopic appendectomy. She had purulent peritonitis and a necrotic ruptured appendix. She had her appendix removed and her abdomen washed out. She was admitted to the ICU afterwards for close monitoring. She remained tachycardic throughout her whole stay. She was tachy on arrival and her heart rate on average stayed between 100-110. Her SBP was 80s-90s but her MAPs remainded >60 throughout her stay. She did not require pressors. She had post operative pain that was poorly controlled with narcotics. She was given scheduled flexeril and toradol with great improvement in her overall pain control. With these on board, her breakthrough pain was controlled with percocet. She became very itchy with IV narcotics but this was treated with benadryl. On POD #1 she was advanced to clears which she tolerated well. She was then advanced to regular but her abdomen became distended. She continued to pass gas but c/o malaise and mild nausea. She ate small meals and drank liquids. She was given miralax and senna/docusate. Yesterday she was given magnesium citrate and a dulcolax suppository. She had a BM overnight. She is feeling better this morning and feels less distended. Her labs are stable. She has had no fever. Her vitals are unchanged. She will discharge home. - Discharge Data Discharge Date: 03/19/18 Discharge Disposition: Home, Self-Care 01 Condition: Fair - Discharge Diagnosis/Problem(s) (1) Acute appendicitis with rupture SNOMED Code(s): 49154555, [id number] ICD Code: K35.2 - ACUTE APPENDICITIS WITH GENERALIZED PERITONITIS Status: Acute Current Visit: Yes - Patient Summary/Data Operative Procedure(s) Performed: Laparoscopic appendectomy - Patient Instructions Diet: Regular Diet as Tolerated Activity: No Lifting Over 20 Pounds (for four weeks after surgery ), Rest and Relax Today Driving: Do Not Drive (for one week or while on pain medications ) Showering/Bathing: May Shower, No Tub Bathing/Swimming (for two weeks ) Notify Provider of: Fever, Increased Pain, Swelling and Redness, Drainage, Nausea and/or Vomiting - Discharge Plan *PRESCRIPTION DRUG MONITORING PROGRAM REVIEWED*: No *COPY OF PRESCRIPTION DRUG MONITORING REPORT IN PATIENT MODE: No Prescriptions/Med Rec: Ciprofloxacin HCl [Cipro] 500 mg PO BID #9 tablet Cyclobenzaprine [Flexeril] 5 mg PO TID PRN #15 tablet PRN Reason: Muscle Spasm metroNIDAZOLE 250 mg PO Q6H #17 tablet Ondansetron [Zofran ODT] 4 mg PO Q6H PRN #30 tab.dis PRN Reason: Nausea Polyethylene Glycol 3350 [MiraLAX] 17 gm PO DAILY #14 packet Home Medications: Home Meds ClonazePAM [KlonoPIN] 0.5 mg PO PRN 03/15/18 [History] Ciprofloxacin HCl [Cipro] 500 mg PO BID #9 tablet 03/18/18 [Rx] Cyclobenzaprine [Flexeril] 5 mg PO TID PRN #15 tablet 03/18/18 [Rx] Ondansetron [Zofran ODT] 4 mg PO Q6H PRN #30 tab.dis 03/18/18 [Rx] Polyethylene Glycol 3350 [MiraLAX] 17 gm PO DAILY #14 packet 03/18/18 [Rx] metroNIDAZOLE 250 mg PO Q6H #17 tablet 03/18/18 [Rx] Patient Handouts: Laparoscopic Appendectomy, Adult, Care After, [id number] Referrals: Pilar Kumar MD [Physician] - 03/24/18 1:00 pm - General Info Functional Status: Reports: Pain Controlled, Tolerating Diet, Ambulating, Urinating - Review of Systems General: Reports: No Symptoms Pulmonary: Reports: No Symptoms Cardiovascular: Reports: No Symptoms Gastrointestinal: Reports: No Symptoms Genitourinary: Reports: No Symptoms Musculoskeletal: Reports: No Symptoms Skin: Reports: No Symptoms - Patient Data Vitals - Most Recent: Last Vital Signs Temp 36.6 C 03/19/18 08:00 Pulse 110 H 03/19/18 08:00 Resp 16 03/19/18 08:00 BP 92/57 L 03/19/18 08:00 Pulse Ox 93 L 03/19/18 08:00 Weight - Most Recent: 62.5 kg I&O - Last 24 hours: Intake & Output 03/18/18 03/19/18 03/19/18 22:59 06:59 14:59 Intake Total 518 500 Output Total 300 320 Balance 218 180 Lab Results - Last 24 hrs: Laboratory Results - last 24 hr 03/19/18 Range/Units 05:10 WBC 6.23 (4.0-11.0) K/uL RBC 3.70 L (4.30-5.90) M/uL Hgb 10.6 L (12.0-16.0) g/dL Hct 31.4 L (36.0-46.0) % MCV 84.9 (80.0-98.0) fL MCH 28.6 (27.0-32.0) pg MCHC 33.8 (31.0-37.0) g/dL RDW Std Deviation 40.1 (28.0-62.0) fl RDW Coeff of Severo 13 (11.0-15.0) % Plt Count 184 (150-400) K/uL MPV 10.60 (7.40-12.00) fL Neut % (Auto) 65.5 (48.0-80.0) % Lymph % (Auto) 21.8 (16.0-40.0) % [place] % (Auto) 10.6 (0.0-15.0) % Eos % (Auto) 1.9 (0.0-7.0) % Baso % (Auto) 0.2 (0.0-1.5) % Neut # (Auto) 4.1 (1.4-5.7) K/uL Lymph # (Auto) 1.4 (0.6-2.4) K/uL [place] # (Auto) 0.7 (0.0-0.8) K/uL Eos # (Auto) 0.1 (0.0-0.7) K/uL Baso # (Auto) 0.0 (0.0-0.1) K/uL Nucleated RBC % 0.0 /100WBC Nucleated RBCs # 0 K/uL Med Orders - Current: Current Medications Acetaminophen (Tylenol) 650 mg PO Q6H PRN PRN Reason: Pain (mild 1-3) Last Admin: 03/17/18 02:21 Dose: 650 mg Ciprofloxacin (Ciprofloxacin Hcl) 500 mg PO BID [facility] Last Admin: 03/19/18 08:22 Dose: 500 mg Cyclobenzaprine HCl (Flexeril) 5 mg PO TID [facility] Last Admin: 03/19/18 05:41 Dose: 5 mg Diphenhydramine HCl (Benadryl) 50 mg PO Q6H PRN PRN Reason: Itching Last Admin: 03/17/18 21:03 Dose: 50 mg Fentanyl (Sublimaze) 50 mcg IVPUSH Q5M PRN PRN Reason: Pain Heparin Sodium (Porcine) (Heparin Sodium) 5,000 units SUBCUT Q12H [facility] Last Admin: 03/19/18 08:23 Dose: Not Given Ketorolac Tromethamine (Toradol) 10 mg PO Q6H [facility] Stop: 03/22/18 08:46 Last Admin: 03/19/18 08:21 Dose: 10 mg Metronidazole (Metronidazole) 250 mg PO Q6H [facility] Last Admin: 03/19/18 08:21 Dose: 250 mg Morphine Sulfate (Morphine) 2 mg IVPUSH Q2H PRN PRN Reason: Abdominal Pain Multivitamins/Minerals/Vitamin C (Tab-A-Pal) 1 tab PO DAILY [facility] Last Admin: 03/19/18 08:21 Dose: 1 tab Ondansetron HCl (Zofran) 4 mg IVPUSH Q6H PRN PRN Reason: Nausea/Vomiting Last Admin: 03/17/18 08:44 Dose: 4 mg Oxycodone HCl (Oxycodone) 10 mg PO Q4H PRN PRN Reason: Abdominal Pain Last Admin: 03/18/18 16:30 Dose: 10 mg Polyethylene Glycol (Miralax) 17 gm PO DAILY [facility] Last Admin: 03/19/18 08:22 Dose: Not Given Promethazine HCl (Phenergan) 25 mg IM Q6H PRN PRN Reason: Nausea Last Admin: 03/16/18 12:01 Dose: 25 mg Scopolamine (Transderm-Scop) 1.5 mg TRDERM Q72H PRN PRN Reason: Nausea Last Admin: 03/16/18 14:16 Dose: 1.5 mg Senna/Docusate Sodium (Senna Plus) 1 tab PO BEDTIME [facility] Last Admin: 03/18/18 21:16 Dose: 1 tab Sodium Chloride (Saline Flush) 10 ml FLUSH ASDIRECTED PRN PRN Reason: Keep Vein Open Sodium Chloride (Saline Flush) 2.5 ml FLUSH ASDIRECTED PRN PRN Reason: Keep Vein Open Discontinued Medications Bisacodyl (Dulcolax) 10 mg RECTAL ONETIME ONE Stop: 03/18/18 13:47 Last Admin: 03/18/18 14:12 Dose: 10 mg Bupivacaine HCl (Marcaine 0.5%) Confirm Administered Dose 30 ml .ROUTE .STK-MED ONE Stop: 03/15/18 13:21 Fentanyl (Sublimaze) Confirm Administered Dose 250 mcg .ROUTE .STK-MED ONE Stop: 03/15/18 13:48 Glycopyrrolate (Robinul) Confirm Administered Dose 0.2 mg .ROUTE .STK-MED ONE Stop: 03/15/18 13:57 Hydromorphone HCl (Dilaudid) 0.5 mg IVPUSH ONETIME ONE Stop: 03/15/18 10:45 Last Admin: 03/15/18 10:56 Dose: Not Given Hydromorphone HCl (Dilaudid) 1 mg IM ONETIME ONE Stop: 03/15/18 10:47 Last Admin: 03/15/18 10:56 Dose: Not Given Hydromorphone HCl (Dilaudid) 1 mg IVPUSH ONETIME ONE Stop: 03/15/18 10:55 Last Admin: 03/15/18 10:55 Dose: 1 mg Hydromorphone HCl (Dilaudid) 1 mg IVPUSH ONETIME ONE Stop: 03/15/18 11:28 Last Admin: 03/15/18 11:34 Dose: 1 mg Hydromorphone HCl (Dilaudid) 1 mg IVPUSH ONETIME ONE Stop: 03/15/18 13:41 Last Admin: 03/15/18 13:44 Dose: 1 mg Hydromorphone HCl (Dilaudid) 0.5 mg IVPUSH Q1H PRN PRN Reason: Abdominal Pain Last Admin: 03/16/18 07:55 Dose: 0.5 mg Hydromorphone HCl (Dilaudid) 0.5 mg IVPUSH Q1H PRN PRN Reason: Abdominal Pain Last Admin: 03/16/18 11:57 Dose: 0.5 mg Sodium Chloride (Normal Saline) 1,000 mls @ 999 mls/hr IV .Bolus ONE Stop: 03/15/18 11:00 Last Admin: 03/15/18 10:17 Dose: 999 mls/hr Piperacillin Sod/Tazobactam (Sod 3.375 gm/ Sodium Chloride) 50 mls @ 100 mls/ hr IV ONETIME ONE Stop: 03/15/18 12:45 Last Admin: 03/15/18 12:40 Dose: 100 mls/hr Lactated Ringer's (Ringers, Lactated) 1,000 mls @ 999 mls/hr IV .BOLUS ONE Stop: 03/15/18 13:17 Last Admin: 03/15/18 12:39 Dose: 999 mls/hr Lactated Ringer's (Ringers, Lactated) 1,000 mls @ 150 mls/hr IV ASDIRECTED [facility] Last Admin: 03/16/18 14:15 Dose: 150 mls/hr Piperacillin Sod/Tazobactam (Sod 3.375 gm/ Sodium Chloride) 50 mls @ 100 mls/ hr IV Q6H [facility] Last Admin: 03/17/18 07:50 Dose: 100 mls/hr Iopamidol (Isovue Multipack-370 (76%)) 100 ml IVPUSH ONETIME STA Stop: 03/15/18 16:00 Last Admin: 03/15/18 16:01 Dose: 100 ml Ketorolac Tromethamine (Toradol) Confirm Administered Dose 30 mg .ROUTE .STK- MED ONE Stop: 03/15/18 13:57 Ketorolac Tromethamine (Toradol) 10 mg PO Q6H PRN PRN Reason: Abdominal Pain Stop: 03/21/18 20:01 Last Admin: 03/17/18 02:20 Dose: 10 mg Lidocaine (Xylocaine-Mpf 2%) Confirm Administered Dose 5 ml .ROUTE .STK-MED ONE Stop: 03/15/18 13:57 Magnesium Citrate (Citrate Of Magnesia) 296 ml PO ONETIME ONE Stop: 03/18/18 13:47 Last Admin: 03/18/18 14:12 Dose: 296 ml Magnesium Citrate (Citrate Of Magnesia) 296 ml PO ONETIME ONE Stop: 03/19/18 07:01 Last Admin: 03/19/18 07:36 Dose: Not Given Meperidine HCl (Demerol) 25 mg IVPUSH ONETIME ONE Stop: 03/15/18 15:53 Last Admin: 03/15/18 15:57 Dose: 25 mg Midazolam HCl (Versed 1 Mg/Ml) Confirm Administered Dose 2 mg .ROUTE .STK-MED ONE Stop: 03/15/18 13:48 Morphine Sulfate (Morphine) 4 mg IVPUSH ONETIME ONE Stop: 03/15/18 10:01 Last Admin: 03/15/18 10:17 Dose: 4 mg Ondansetron HCl (Zofran) 4 mg IVPUSH ONETIME ONE Stop: 03/15/18 10:01 Last Admin: 03/15/18 10:17 Dose: 4 mg Ondansetron HCl (Zofran) Confirm Administered Dose 4 mg .ROUTE .STK-MED ONE Stop: 03/15/18 13:57 Phenylephrine HCl (Phenylephrine In Ns 100 Mcg/Ml) Confirm Administered Dose 1 mg .ROUTE .STK-MED ONE Stop: 03/15/18 14:23 Propofol (Diprivan 20 Ml) Confirm Administered Dose 200 mg .ROUTE .STK-MED ONE Stop: 03/15/18 13:48 Rocuronium [place] (Zemuron) Confirm Administered Dose 100 mg .ROUTE .STK-MED ONE Stop: 03/15/18 13:57 Succinylcholine Chloride (Quelicin) Confirm Administered Dose 200 mg .ROUTE .STK -MED ONE Stop: 03/15/18 13:57 Sugammadex Sodium (Bridion) Confirm Administered Dose 200 mg .ROUTE .STK-MED ONE Stop: 03/15/18 13:54 Last Admin: 03/15/18 16:08 Dose: Not Given - Exam General: Reports: Alert, Oriented HEENT: Reports: Pupils Equal, Pupils Reactive Neck: Reports: Supple Lungs: Reports: Normal Respiratory Effort Cardiovascular: Reports: Tachycardia GI/Abdominal Exam: Soft, Non-Tender, No Mass, Distended (mild) Back Exam: Reports: Normal Inspection, Full Range of Motion Extremities: Normal Inspection, Normal Range of Motion Skin: Reports: Warm, Dry, Intact Wound/Incisions: Reports: Healing Well Neurological: Reports: No New Focal Deficit
== END 2018-03-19 09:45 | disposition home or self-care (01) | DRG 340 ==
LOC: MW.ED 09:53 → MW.SDS 13:09 → MW.ICU 16:01 → MW.MS 03-17 19:15
PROVIDERS: ADMIT Surgery; ATTEND Surgery
PROC: 0DTJ4ZZ Resection of Appendix, Percutaneous Endoscopic Approach (ICD-10-PCS; principal; 2018-03-15)
DX: K35.2 Acute appendicitis with generalized peritonitis (principal); G89.18 Other acute postprocedural pain; L29.8 Other pruritus; T40.695A Adverse effect of other narcotics, initial encounter; Y92.230 Patient room in hospital as the place of occurrence of the external cause; Z79.899 Other long term (current) drug therapy; F41.9 Anxiety disorder, unspecified; F32.9 Major depressive disorder, single episode, unspecified
CPT/HCPCS: 36415; 74177; 80053; 83605; 83690; 84702; 85025; 96361; 96365; 96375; 96376; 99285; C1776; J0330; J1170 ×3; J1885; J2175; J2250; J2270; J2370; J2405 ×3; J2543; J2704; J3010; J3490 ×2; J7040; J7050; J7120; 80048; 88304; 99284; A9270-GY; J1644; J2550; Q9967

== ENCOUNTER 2018-04-04 09:27 | Emergency (ER) | payer MEDICAID ==
[2018-04-04] MEDS ORDERED: Morphine 2 MG/ML Syringe IVPUSH ONE (10:03)
--- NOTE | 2018-04-04 10:10 | EDM.PDOC ---
<Mary Berkowitz - Last Filed: 04/04/18 13:12> ED HPI GENERAL MEDICAL PROBLEM - General Chief Complaint: Abdominal Pain Stated Complaint: SIDE PAIN Time Seen by Provider: 04/04/18 09:42 - History of Present Illness INITIAL COMMENTS - FREE TEXT/NARRATIVE: Reviewed this case with Dr. Sylvester. Patient's CT showed a very small abscess that is not drainable by CT guidance. Dr Kumar reviewed CT and recommended she start on Cipro and Flagyl with follow-up in one week. Patient is given Dilaudid IM and Zofran ODT while in the ED for pain control and she'll be discharged with prescription for tramadol. She is instructed to return back to the ED if symptoms worsen or interchange agent the weekend. - Related Data Allergies Allergy/AdvReac Type Severity Reaction Status Date / Time No Known Allergies Allergy Verified 04/04/18 09:44 Home Meds: Home Meds ClonazePAM [KlonoPIN] 0.5 mg PO ASDIRECTED PRN 03/15/18 [History] Ciprofloxacin HCl [Cipro] 500 mg PO BID #20 tablet 04/04/18 [Rx] metroNIDAZOLE [Flagyl] 500 mg PO Q8H #30 tab 04/04/18 [Rx] traMADol HCl [Tramadol HCl] 50 mg PO Q6H PRN #16 tablet 04/04/18 [Rx] Course - Vital Signs Last Recorded V/S: Last Vital Signs Temp 97.1 F 04/04/18 13:45 Pulse 106 H 04/04/18 13:45 Resp 16 04/04/18 13:45 BP 108/62 04/04/18 13:45 Pulse Ox 99 04/04/18 13:45 - Orders/Labs/Meds Orders: Active Orders 24 hr Category Date Time Status POCTesting [POC Labs] [RC] ASDIRECTED Care 04/04/18 09:59 Inactive CULTURE BLOOD [BC] Stat Lab 04/04/18 10:17 Received CULTURE BLOOD [BC] Stat Lab 04/04/18 10:17 Received Blood Culture x2 Reflex Set [OM.PC] Stat Oth 04/04/18 09:59 Ordered Labs: Laboratory Tests 04/04/18 04/04/18 04/04/18 Range/Units 10:17 10:17 10:17 WBC 8.26 (4.0-11.0) K/uL RBC 4.62 (4.30-5.90) M/uL Hgb 13.2 (12.0-16.0) g/dL Hct 40.1 (36.0-46.0) % MCV 86.8 (80.0-98.0) fL MCH 28.6 (27.0-32.0) pg MCHC 32.9 (31.0-37.0) g/dL RDW Std Deviation 41.1 (28.0-62.0) fl RDW Coeff of [place] 13 (11.0-15.0) % Plt Count 411 H (150-400) K/uL MPV 10.10 (7.40-12.00) fL Neut % (Auto) 69.5 (48.0-80.0) % Lymph % (Auto) 20.7 (16.0-40.0) % [place] % (Auto) 8.4 (0.0-15.0) % Eos % (Auto) 1.3 (0.0-7.0) % Baso % (Auto) 0.1 (0.0-1.5) % Neut # (Auto) 5.7 (1.4-5.7) K/uL Lymph # (Auto) 1.7 (0.6-2.4) K/uL [place] # (Auto) 0.7 (0.0-0.8) K/uL Eos # (Auto) 0.1 (0.0-0.7) K/uL Baso # (Auto) 0.0 (0.0-0.1) K/uL Nucleated RBC % 0.0 /100WBC Nucleated RBCs # 0 K/uL Lactate 0.6 (0.20-2.00) mmol/L Sodium 138 (136-145) mmol/L Potassium 4.4 (3.5-5.1) mmol/L Chloride 104 (98-107) mmol/L Carbon Dioxide 25.8 (21.0-32.0) mmol/L BUN 18 (7.0-18.0) mg/dL Creatinine 0.8 (0.6-1.0) mg/dL Est Cr Clr Drug Dosing 91.20 mL/min Estimated GFR (MDRD) > 60.0 ml/min Glucose 91 (74-106) mg/dL Calcium 8.8 (8.5-10.1) mg/dL Total Bilirubin 0.7 (0.2-1.0) mg/dL AST 13 L (15-37) IU/L ALT 21 (14-63) IU/L Alkaline Phosphatase 66 (46-116) U/L Total Protein 7.8 (6.4-8.2) g/dL Albumin 3.7 (3.4-5.0) g/dL Globulin 4.1 H (2.0-3.5) g/dL Albumin/Globulin Ratio 0.9 L (1.3-2.8) Urine Color Urine Appearance Urine pH (5.0-8.0) Ur Specific [place] (1.001-1.035) Urine Protein (NEGATIVE) mg/dL Urine Glucose (UA) (NEGATIVE) mg/dL Urine Ketones (NEGATIVE) mg/dL Urine Occult Blood (NEGATIVE) Urine Nitrite (NEGATIVE) Urine Bilirubin (NEGATIVE) Urine Urobilinogen (<2.0) EU/dL Ur Leukocyte Esterase (NEGATIVE) Urine RBC (0-2/HPF) Urine WBC (0-5/HPF) Ur Epithelial Cells (NONE-FEW) Amorphous Sediment (NEGATIVE) Urine Bacteria (NEGATIVE) Urine Mucus (NONE-MOD) Urine HCG, Qual (NEGATIVE) 04/04/18 04/04/18 Range/Units 10:25 10:25 WBC (4.0-11.0) K/uL RBC (4.30-5.90) M/uL Hgb (12.0-16.0) g/dL Hct (36.0-46.0) % MCV (80.0-98.0) fL MCH (27.0-32.0) pg MCHC (31.0-37.0) g/dL RDW Std Deviation (28.0-62.0) fl RDW Coeff of [place] (11.0-15.0) % Plt Count (150-400) K/uL MPV (7.40-12.00) fL Neut % (Auto) (48.0-80.0) % Lymph % (Auto) (16.0-40.0) % [place] % (Auto) (0.0-15.0) % Eos % (Auto) (0.0-7.0) % Baso % (Auto) (0.0-1.5) % Neut # (Auto) (1.4-5.7) K/uL Lymph # (Auto) (0.6-2.4) K/uL [place] # (Auto) (0.0-0.8) K/uL Eos # (Auto) (0.0-0.7) K/uL Baso # (Auto) (0.0-0.1) K/uL Nucleated RBC % /100WBC Nucleated RBCs # K/uL Lactate (0.20-2.00) mmol/L Sodium (136-145) mmol/L Potassium (3.5-5.1) mmol/L Chloride (98-107) mmol/L Carbon Dioxide (21.0-32.0) mmol/L BUN (7.0-18.0) mg/dL Creatinine (0.6-1.0) mg/dL Est Cr Clr Drug Dosing mL/min Estimated GFR (MDRD) ml/min Glucose (74-106) mg/dL Calcium (8.5-10.1) mg/dL Total Bilirubin (0.2-1.0) mg/dL AST (15-37) IU/L ALT (14-63) IU/L Alkaline Phosphatase (46-116) U/L Total Protein (6.4-8.2) g/dL Albumin (3.4-5.0) g/dL Globulin (2.0-3.5) g/dL Albumin/Globulin Ratio (1.3-2.8) Urine Color YELLOW Urine Appearance CLEAR Urine pH 6.0 (5.0-8.0) Ur Specific [place] 1.025 (1.001-1.035) Urine Protein NEGATIVE (NEGATIVE) mg/dL Urine Glucose (UA) NEGATIVE (NEGATIVE) mg/dL Urine Ketones NEGATIVE (NEGATIVE) mg/dL Urine Occult Blood NEGATIVE (NEGATIVE) Urine Nitrite NEGATIVE (NEGATIVE) Urine Bilirubin NEGATIVE (NEGATIVE) Urine Urobilinogen 0.2 (<2.0) EU/dL Ur Leukocyte Esterase TRACE (NEGATIVE) Urine RBC NONE SEEN (0-2/HPF) Urine WBC 3-5 (0-5/HPF) Ur Epithelial Cells MANY (NONE-FEW) Amorphous Sediment NOT SEEN (NEGATIVE) Urine Bacteria FEW (NEGATIVE) Urine Mucus LIGHT (NONE-MOD) Urine HCG, Qual NEGATIVE (NEGATIVE) Meds: Medications Discontinued Medications Generic Name Dose Route Start Last Admin Trade Name Freq PRN Reason Stop Dose Admin Hydromorphone HCl 1 mg 04/04/18 13:11 04/04/18 13:27 Dilaudid IM 04/04/18 13:12 Not Given ONETIME ONE Hydromorphone HCl 0.5 mg 04/04/18 13:24 04/04/18 13:26 Dilaudid IVPUSH 04/04/18 13:25 0.5 mg ONETIME ONE Administration Morphine Sulfate 2 mg 04/04/18 10:03 04/04/18 10:36 Morphine IVPUSH 04/04/18 10:04 2 mg ONETIME ONE Administration Ondansetron HCl 4 mg 04/04/18 13:11 04/04/18 13:22 Zofran Odt PO 04/04/18 13:12 4 mg ONETIME ONE Administration Departure - Departure Time of Disposition: 13:14 Disposition: Home, Self-Care 01 Condition: Good Clinical Impression: Intra-abdominal abscess - Discharge Information *PRESCRIPTION DRUG MONITORING PROGRAM REVIEWED*: No *COPY OF PRESCRIPTION DRUG MONITORING REPORT IN PATIENT MODE: No Prescriptions: Ciprofloxacin HCl [Cipro] 500 mg PO BID #20 tablet metroNIDAZOLE [Flagyl] 500 mg PO Q8H #30 tab traMADol HCl [Tramadol HCl] 50 mg PO Q6H PRN #16 tablet PRN Reason: Pain Referrals: PCP,None [Primary Care Provider] - Forms: ED Department Discharge Additional Instructions: The following information is given to patients seen in the emergency department who are being discharged to home. This information is to outline your options for follow-up care. We provide all patients seen in our emergency department with a follow-up referral. The need for follow-up, as well as the timing and circumstances, are variable depending upon the specifics of your emergency department visit. If you don't have a primary care physician on staff, we will provide you with a referral. We always advise you to contact your personal physician following an emergency department visit to inform them of the circumstance of the visit and for follow-up with them and/or the need for any referrals to a consulting specialist. The emergency department will also refer you to a specialist when appropriate. This referral assures that you have the opportunity for follow-up care with a specialist. All of these measure are taken in an effort to provide you with optimal care, which includes your follow-up. Under all circumstances we always encourage you to contact your private physician who remains a resource for coordinating your care. When calling for follow-up care, please make the office aware that this follow-up is from your recent emergency room visit. If for any reason you are refused follow-up, please contact the [facility] Department at and asked to speak to the emergency department charge nurse. Meds as directed, follow up with Dr. Burton in one week. Return to ER immediately for fevers, vomiting or symptoms worsen or change. [facility] [address] [place] [address], [address] [place] [address] - My Orders Last 24 Hours: My Active Orders 04/04/18 09:59 POCTesting [POC Labs] [RC] ASDIRECTED Blood Culture x2 Reflex Set [OM.PC] Stat 04/04/18 10:17 CULTURE BLOOD [BC] Stat CULTURE BLOOD [BC] Stat - Assessment/Plan Last 24 Hours: My Active Orders 04/04/18 09:59 POCTesting [POC Labs] [RC] ASDIRECTED Blood Culture x2 Reflex Set [OM.PC] Stat 04/04/18 10:17 CULTURE BLOOD [BC] Stat CULTURE BLOOD [BC] Stat <Samia Sylvester - Last Filed: 04/04/18 18:08> ED HPI GENERAL MEDICAL PROBLEM - History of Present Illness INITIAL COMMENTS - FREE TEXT/NARRATIVE: HISTORY AND PHYSICAL: History of present illness: The patient is a 33-year-old female who presents to the ER with right upper and lower quadrant pain for the past week. The patient had a appendectomy 1 month ago for necrotic ruptured appendix. She was in the hospital for several days. She did fine postoperatively until one week ago when she developed sharp stabbing pains that were intermittent in the right upper and lower quadrant that radiates around her flank to her back. For the past 2 days the pain has been constant. She rates the pain a 8-9/10. She's been using her PO Toradol at home without relief. She has associated nausea and fever. She denies any constipation, diarrhea, burning with urination, blood in the stool/urine. She's unsure of her last menstrual period because she has Mirena and her periods are irregular. [] Review of systems: As per history of present illness and below otherwise all systems reviewed and negative. Past medical history: As per history of present illness and as reviewed below otherwise noncontributory. Surgical history: As per history of present illness and as reviewed below otherwise noncontributory. Social history: No reported history of drug or alcohol abuse. Family history: As per history of present illness and as reviewed below otherwise noncontributory. Physical exam: HEENT: Atraumatic, normocephalic, pupils reactive, negative for conjunctival pallor or scleral icterus, mucous membranes moist, throat clear, neck supple, nontender, trachea midline. Lungs: Clear to auscultation, breath sounds equal bilaterally, chest nontender. Heart: S1S2, regular, negative for clicks, rubs, or JVD. Abdomen: Soft, nondistended, tender to palpation right side RLQ>RUQ, no rebound or guarding. Surgical scars healed. Negative for masses or hepatosplenomegaly. Negative for costovertebral tenderness. Pelvis: Stable nontender. Genitourinary: Deferred. Rectal: Deferred. Extremities: Atraumatic, negative for cords or calf pain. Neurovascular unremarkable. Neuro: Awake, alert, oriented. Cranial nerves II through XII unremarkable. Cerebellum unremarkable. Motor and sensory unremarkable throughout. Exam nonfocal. Diagnostics: [CBC, CMP, UA, Blood cultures, lactate, test, CT ab/pelvis with contrast] Therapeutics: [Morphine] Impression: [abdominal pain] Plan: [Care transferred to Dr. Berkowitz, CT pending] Definitive disposition and diagnosis as appropriate pending reevaluation and review of above. Right Abdomen Pain Score (Numeric/FACES): 8 Past Medical History - Past Health History Medical/Surgical History: Denies Medical/Surgical History RHIA History: Reports: Psychiatric History: Reports: Anxiety, Depression - Past Surgical History GI Surgical History: Reports: Appendectomy Social & Family History - Family History Family Medical History: Noncontributory - Tobacco Use Smoking Status *Q: Never Smoker - Caffeine Use Caffeine Use: Reports: None - Recreational Drug Use Recreational Drug Use: Yes Drug Use in Last 12 Months: Yes Recreational Drug Type: Reports: Marijuana/Hashish Recreational Drug Use Frequency: Rarely ED ROS GENERAL - Review of Systems Review Of Systems: See Below (see dictation) ED EXAM, GENERAL - Physical Exam Exam: See Below (see dictation) Course - Orders/Labs/Meds Labs: Laboratory Tests 04/04/18 04/04/18 04/04/18 Range/Units 10:17 10:17 10:17 WBC 8.26 (4.0-11.0) K/uL RBC 4.62 (4.30-5.90) M/uL Hgb 13.2 (12.0-16.0) g/dL Hct 40.1 (36.0-46.0) % MCV 86.8 (80.0-98.0) fL MCH 28.6 (27.0-32.0) pg MCHC 32.9 (31.0-37.0) g/dL RDW Std Deviation 41.1 (28.0-62.0) fl RDW Coeff of [place] 13 (11.0-15.0) % Plt Count 411 H (150-400) K/uL MPV 10.10 (7.40-12.00) fL Neut % (Auto) 69.5 (48.0-80.0) % Lymph % (Auto) 20.7 (16.0-40.0) % [place] % (Auto) 8.4 (0.0-15.0) % Eos % (Auto) 1.3 (0.0-7.0) % Baso % (Auto) 0.1 (0.0-1.5) % Neut # (Auto) 5.7 (1.4-5.7) K/uL Lymph # (Auto) 1.7 (0.6-2.4) K/uL [place] # (Auto) 0.7 (0.0-0.8) K/uL Eos # (Auto) 0.1 (0.0-0.7) K/uL Baso # (Auto) 0.0 (0.0-0.1) K/uL Nucleated RBC % 0.0 /100WBC Nucleated RBCs # 0 K/uL Lactate 0.6 (0.20-2.00) mmol/L Sodium 138 (136-145) mmol/L Potassium 4.4 (3.5-5.1) mmol/L Chloride 104 (98-107) mmol/L Carbon Dioxide 25.8 (21.0-32.0) mmol/L BUN 18 (7.0-18.0) mg/dL Creatinine 0.8 (0.6-1.0) mg/dL Est Cr Clr Drug Dosing 91.20 mL/min Estimated GFR (MDRD) > 60.0 ml/min Glucose 91 (74-106) mg/dL Calcium 8.8 (8.5-10.1) mg/dL Total Bilirubin 0.7 (0.2-1.0) mg/dL AST 13 L (15-37) IU/L ALT 21 (14-63) IU/L Alkaline Phosphatase 66 (46-116) U/L Total Protein 7.8 (6.4-8.2) g/dL Albumin 3.7 (3.4-5.0) g/dL Globulin 4.1 H (2.0-3.5) g/dL Albumin/Globulin Ratio 0.9 L (1.3-2.8) Urine Color Urine Appearance Urine pH (5.0-8.0) Ur Specific [place] (1.001-1.035) Urine Protein (NEGATIVE) mg/dL Urine Glucose (UA) (NEGATIVE) mg/dL Urine Ketones (NEGATIVE) mg/dL Urine Occult Blood (NEGATIVE) Urine Nitrite (NEGATIVE) Urine Bilirubin (NEGATIVE) Urine Urobilinogen (<2.0) EU/dL Ur Leukocyte Esterase (NEGATIVE) Urine RBC (0-2/HPF) Urine WBC (0-5/HPF) Ur Epithelial Cells (NONE-FEW) Amorphous Sediment (NEGATIVE) Urine Bacteria (NEGATIVE) Urine Mucus (NONE-MOD) Urine HCG, Qual (NEGATIVE) 04/04/18 04/04/18 Range/Units 10:25 10:25 WBC (4.0-11.0) K/uL RBC (4.30-5.90) M/uL Hgb (12.0-16.0) g/dL Hct (36.0-46.0) % MCV (80.0-98.0) fL MCH (27.0-32.0) pg MCHC (31.0-37.0) g/dL RDW Std Deviation (28.0-62.0) fl RDW Coeff of [place] (11.0-15.0) % Plt Count (150-400) K/uL MPV (7.40-12.00) fL Neut % (Auto) (48.0-80.0) % Lymph % (Auto) (16.0-40.0) % [place] % (Auto) (0.0-15.0) % Eos % (Auto) (0.0-7.0) % Baso % (Auto) (0.0-1.5) % Neut # (Auto) (1.4-5.7) K/uL Lymph # (Auto) (0.6-2.4) K/uL [place] # (Auto) (0.0-0.8) K/uL Eos # (Auto) (0.0-0.7) K/uL Baso # (Auto) (0.0-0.1) K/uL Nucleated RBC % /100WBC Nucleated RBCs # K/uL Lactate (0.20-2.00) mmol/L Sodium (136-145) mmol/L Potassium (3.5-5.1) mmol/L Chloride (98-107) mmol/L Carbon Dioxide (21.0-32.0) mmol/L BUN (7.0-18.0) mg/dL Creatinine (0.6-1.0) mg/dL Est Cr Clr Drug Dosing mL/min Estimated GFR (MDRD) ml/min Glucose (74-106) mg/dL Calcium (8.5-10.1) mg/dL Total Bilirubin (0.2-1.0) mg/dL AST (15-37) IU/L ALT (14-63) IU/L Alkaline Phosphatase (46-116) U/L Total Protein (6.4-8.2) g/dL Albumin (3.4-5.0) g/dL Globulin (2.0-3.5) g/dL Albumin/Globulin Ratio (1.3-2.8) Urine Color YELLOW Urine Appearance CLEAR Urine pH 6.0 (5.0-8.0) Ur Specific [place] 1.025 (1.001-1.035) Urine Protein NEGATIVE (NEGATIVE) mg/dL Urine Glucose (UA) NEGATIVE (NEGATIVE) mg/dL Urine Ketones NEGATIVE (NEGATIVE) mg/dL Urine Occult Blood NEGATIVE (NEGATIVE) Urine Nitrite NEGATIVE (NEGATIVE) Urine Bilirubin NEGATIVE (NEGATIVE) Urine Urobilinogen 0.2 (<2.0) EU/dL Ur Leukocyte Esterase TRACE (NEGATIVE) Urine RBC NONE SEEN (0-2/HPF) Urine WBC 3-5 (0-5/HPF) Ur Epithelial Cells MANY (NONE-FEW) Amorphous Sediment NOT SEEN (NEGATIVE) Urine Bacteria FEW (NEGATIVE) Urine Mucus LIGHT (NONE-MOD) Urine HCG, Qual NEGATIVE (NEGATIVE)
[2018-04-04 11:05] LABS: CHLORIDE,CL 104 mmol/L (98-107); SODIUM,NA 138 mmol/L (136-145)
--- NOTE | 2018-04-04 13:00 | CT ---
CT of the abdomen and pelvis with contrast. HISTORY: Pain TECHNIQUE: Axial CT images were obtained of the abdomen and pelvis following administration of 75 mL of Isovue-370 in the right antecubital fossa without complication. Coronal and sagittal reconstructions obtained. FINDINGS: The lung bases are clear, no pleural effusion. The liver, spleen, adrenal glands, and pancreas appear normal. There is a small amount of perihepatic and pericholecystic fluid. There is a 1.4 cm collection adjacent to the inferior right hepatic lobe. This demonstrates adjacent stranding. There is no bulky retroperitoneal lymphadenopathy. The kidneys enhance and function symmetrically without evidence of obstructive uropathy. The large and small bowel are normal in caliber without evidence of obstruction. Appendectomy. The urinary bladder is normal. There is an IUD within the uterus. Likely small right ovarian cyst. No significant free pelvic fluid. No suspicious osseous bodies identified. IMPRESSION: 1. Small 1.4 cm collection adjacent to the inferior right hepatic lobe, likely a small abscess. 2. There is a small amount of perihepatic perisplenic fluid, otherwise the gallbladder appears normal.
[2018-04-04] MEDS ORDERED: Ondansetron 4 MG Tab.DIS PO ONE (13:11)
[2018-04-04] MEDS ORDERED: HYDROmorphone 2 MG/ML SDV IM ONE (13:11)
[2018-04-04] MEDS ORDERED: HYDROmorphone 2 MG/ML Syringe IVPUSH ONE (13:24)
[2018-04-04 14:14] VITALS: BP 108/62
[2018-04-04] MEDS ORDERED: Iopamidol 755 MG/ML 500 ML Multipack Bottle IVPUSH STA (18:06)
== END 2018-04-04 13:46 | disposition home or self-care (01) ==
LOC: MW.ED 09:27
DX: K65.1 Peritoneal abscess (principal)
CPT/HCPCS: 36415; 74177; 80053; 81001; 81025; 83605; 85025; 87040; 96374; 96375; 99284; A9270; J1170; J2270; Q9967; 99283